=== PATIENT | female | born 1930 | race Caucasian/White ===

== ENCOUNTER 2016-10-27 15:29 | Emergency (ER) | payer MEDICARE, BC ==
[~2016-10-27] VITALS: Ht 160 cm; Wt 70.0 kg
[~2016-10-27 15:29] MED LIST: ASPI81TA81 PO; CIPR-9 PO; CORT1SOL LEFT EAR; FURO20TA PO; INSUINJ3 SQ; METO25TA3 PO; NOVONP2 SQ; PLAV75TA29 PO; SPIR25TA PO; ZOCO40TA PO
[2016-10-27 16:39] VITALS: BP 133/74; PULSE 86; RESP 20; TEMP 98.3; O2SAT 96
[2016-10-27] MEDS ORDERED: ONDANSETRON ODT 4 MG TAB PO ONE (17:00)
[2016-10-27] MEDS ORDERED: ACETAMINOPHEN/HYDROcodone 325 MG/5 MG TAB PO ONE (17:00)
--- NOTE | 2016-10-27 17:00 | PD ---
HPI Chief Complaint: Pain: Acute or Chronic Time Seen by Provider: 16:48 Travel History International Travel<30 days: No Contact w/Intl Traveler<30days: No Traveled to known affect area: No History of Present Illness HPI 86 year old female presents for evaluation of right shoulder pain. The patient reports a prior to arrival she was lifting a gallon of milk at [employer] and she felt a pain in her right shoulder. Pain is an aching pain which is worse with any sort of passive or active range of motion utilizing the right shoulder. The pain is relieved with rest. Denies chest pain, shortness of breath, arm pain, neck pain. She reports that she saw Dr. Albarado on October 17 and was told that she had a "right rotator cuff problem" and she declined any sort of surgical intervention. He did perform a intra-articular right shoulder steroid injection at that time which helped with her previous right shoulder discomfort. She has no other complaints. PFSH Past Medical History Hx Anticoagulant Therapy: Yes (PLAVIX) Arthritis: Yes Asthma: No Autoimmune Disease: No Blood Disorders: No Heart Rhythm Problems: No Cancer: Yes (LEFT BREAST CANCER) Cardiovascular Problems: Yes High Cholesterol: Yes Chemotherapy: No Chest Pain: Yes Congestive Heart Failure: Yes COPD: Yes Cerebrovascular Accident: No Diabetes: Yes Patient Takes Glucophage: No Diminished Hearing: No Endocrine: No Gastrointestinal Disorders: Yes GERD: No Genitourinary: No Headaches: No Hepatitis: No Hiatal Hernia: No Hypertension: Yes Immune Disorder: No Implanted Vascular Access Dvce: Yes Kidney Stones: No Musculoskeletal: Yes (ARTHRITIS) Neurologic: No Psychiatric: No Reproductive: No Respiratory: No Migraines: No Myocardial Infarction: Yes Radiation Therapy: Yes Renal Failure: No Seizures: No Sleep Apnea: No Thyroid Disease: No Ulcer: No Tetanus Vaccination: > 5 Years Influenza Vaccination: Yes Menopausal: Yes Past Surgical History Abdominal Surgery: Yes (CHARLETTE., ) AICD: No Appendectomy: No Arteriovenous Shunt: No Cardiac Surgery: Yes (STENT, CABG X 2 VESSELS) Cholecystectomy: Yes Coronary Artery Bypass Graft: Yes ([address]) Ear Surgery: No Endocrine Surgery: No Eye Surgery: Yes (BILAT. CATARACT) Genitourinary Surgery: Yes Gynecologic Surgery: Yes (HYSTERECTOMY) Hysterectomy: Yes Insulin Pump: No Joint Replacement: Yes (LEFT KNEE 2003) Neurologic Surgery: No Oral Surgery: No Pacemaker: No Other Surgery: Yes (LEFT BREAST LUMPECTOMY) Social History Alcohol Use: No Tobacco Use: No Substance Use: No Allergies-Medications (Allergen,Severity, Reaction): Coded Allergies: Demerol (Verified Allergy, Severe, N/V, 10/27/16) CONFUSION Morphine (Verified Allergy, Severe, Itching, 10/27/16) Scopolamine (Verified Allergy, Severe, HALLUCINATES, 10/27/16) Adenosine (Verified Adverse Reaction, Severe, Arrhythmias, 10/27/16) Codeine (Verified Adverse Reaction, Severe, Confusion, 10/27/16) Percocet (Unverified Adverse Reaction, Intermediate, CONFUSION, 10/27/16) Reported Meds & Prescriptions Reported Meds & Active Scripts Active Tylenol-Codeine #3 (Acetaminophen-Codeine) 300-30 mg Tab 1 Tab PO Q4H PRN Reported Novolin N Inj (Insulin Human NPH) 100 Unit/Ml Inj 45 Units SQ AC BREAKFAST Novolin R Relion (Insulin Regular (Human)) 100 Unit/Ml Inj 1 Units SQ DIRECTED Zocor (Simvastatin) 40 Mg Tab 40 Mg PO DAILY Furosemide 20 Mg Tab 20 Mg PO DAILY Metoprolol Tartrate 25 Mg Tab 25 Mg PO BID Spironolactone 25 Mg Tab 25 Mg PO DAILY Plavix (Clopidogrel Bisulfate) 75 Mg Tab 75 Mg PO DAILY Aspir-81 (Aspirin) 81 Mg Tabdr 1 Tab PO DAILY Review of Systems Except as stated in HPI: all other systems reviewed are Neg Physical Exam Narrative GENERAL: Well-developed well-nourished female in no acute distress SKIN: Warm and dry. HEAD: Atraumatic. Normocephalic. EYES: Pupils equal and round. No scleral icterus. No injection or drainage. ENT: No nasal bleeding or discharge. Mucous membranes pink and moist. NECK: Trachea midline. No JVD. CARDIOVASCULAR: Regular rate and rhythm. No murmur appreciated. RESPIRATORY: No accessory muscle use. Clear to auscultation. Breath sounds equal bilaterally. GASTROINTESTINAL: Abdomen soft, non-tender, nondistended. MUSCULOSKELETAL: No obvious deformities. There is some tenderness to palpation to the right glenohumeral joint. The patient has limited passive and active range of motion utilizing the right shoulder secondary to pain. Capillary refill less than 2 seconds all digits right hand, 2+ radial pulse. There is no tenderness to palpation of the right clavicle, scapula, no tenderness to palpation of the cervical spine. NEUROLOGICAL: Awake and alert. No obvious cranial nerve deficits. Motor grossly within normal limits. Normal speech. Data Data Last Documented VS Vital Signs Date Time Temp Pulse Resp B/P Pulse Ox O2 Delivery O2 Flow Rate FiO2 10/27/16 16:39 98.3 86 20 133/74 96 Room Air Orders Acetamin-Hydrocod 325-5 Mg ([place] 5-325 (10/27/16 17:00) Ondansetron Odt (Zofran Odt) (10/27/16 17:00) Shoulder, Limited(2vws) (10/27/16 ) [facility] Medical Decision Making Medical Screen Exam Complete: Yes Emergency Medical Condition: Yes Medical Record Reviewed: Yes Interpretation(s) Right shoulder x-ray CONCLUSION: Osteoarthritis and subacromial spurring. No fracture or subluxation demonstrated. Differential Diagnosis Right shoulder strain, rotator cuff tear, impingement, proximal humeral fracture , dislocation, acromioclavicular separation, radiculopathy Narrative Course 86-year-old female with known right rotator cuff pathology presents with increased right shoulder pain after lifting a gallon of milk at [employer]. The patient has listed allergies to codeine, Demerol, morphine and Percocet however she has taken Lortab in the past with no adverse effect. She'll be given a dose of Lortab and Zofran here for pain control. Limited right shoulder x-ray and ordered. X-ray reveals osteoarthritis, subacromial spurring, no acute abnormalities. At This point, plan is to discharge the patient with a sling and a short course of Tylenol with codeine. Diagnosis Primary Impression: Right shoulder strain Qualified Code: S46.911A - Right shoulder strain, initial encounter Additional Instructions: Avoid strenuous activity or heavy lifting. Shoulder sling for the next 2 days. Follow-up with your primary care physician closely. Take Tylenol with Codeine for discomfort. Do not drive or drink alcohol when taking this medication. Return for any emergent medical conditions. Med/Other Pt SpecificInfo: Prescription(s) given Scripts Acetaminophen-Codeine (Tylenol-Codeine #3)300-30 mg Tab1 Tab PO Q4H PRN (PAIN) # 20 TAB Ref 0 Prov:Aura Batista MD 10/27/16 Disposition: 01 DISCHARGE HOME Condition: Stable [place] Oct 27, 2016 17:00
--- NOTE | 2016-10-27 17:29 | RADRPT ---
EXAM DATE/TIME: 10/27/2016 17:17 [facility] COMPARISON: No previous studies available for comparison. INDICATIONS : Right anterior pain after reaching for something today. MEDICAL HISTORY : Cardiovascular disease. SURGICAL HISTORY : CABG. ENCOUNTER: Initial ACUITY: 1 day PAIN SCORE: 10/10 LOCATION: Right shoulder FINDINGS: No fracture or subluxation seen of the right shoulder. There is moderate to severe osteoarthritis of both the acromioclavicular and glenohumeral joints. The re is also subacromial spurring. CONCLUSION: Osteoarthritis and subacromial spurring. No fracture or subluxation demonstrated. Aureliano Nichole MD on October 27, 2016 at 17:26 Board Certified Radiologist. This report was verified electronically.
[2016-10-27] MEDS ORDERED: TYLETAB34 PO (17:45)
[2016-10-27 18:29] VITALS: BP 130/71
== END 2016-10-27 19:17 | disposition home or self-care (01) ==
LOC: NEPA 15:29
DX: S46.911A Strain of unspecified muscle, fascia and tendon at shoulder and upper arm level, right arm, initial encounter (principal); Z79.01 Long term (current) use of anticoagulants; E78.00 Pure hypercholesterolemia, unspecified; J44.9 Chronic obstructive pulmonary disease, unspecified; E11.9 Type 2 diabetes mellitus without complications; Z79.4 Long term (current) use of insulin; I10 Essential (primary) hypertension; X50.9XXA Other and unspecified overexertion or strenuous movements or postures, initial encounter; Y93.9 Activity, unspecified; Y92.9 Unspecified place or not applicable; Y99.9 Unspecified external cause status
CPT/HCPCS: 73030; 99283

== ENCOUNTER → 2016-12-30 | Outpatient (CLI) | payer MEDICARE, BC ==
[~2016-12-30] MED LIST changes: -CIPR-9 PO; -CORT1SOL LEFT EAR; +TYLETAB34 PO
[2016-12-30 10:35] LABS: HEMOGLOBIN A1a 1.4 %; HEMOGLOBIN A1b 1.1 %; HEMOGLOBIN Ao 82.8 %; HEMOGLOBIN LA1C 1.6 %; HEMOGLOBIN P3 3.8 %
[2016-12-30 10:45] LABS: ALT (GPT) 17 U/L (10-53); ANION GAP 9 MEQ/L (5-15); AST (GOT) 12 U/L (15-37); BICARBONATE 28.7 MEQ/L (21.0-32.0); BLOOD UREA NITROGEN 10 MG/DL (7-18); CHLORIDE 104 MEQ/L (98-107); GLOMERULAR FILTRATION RATE 68 ML/MIN (>89); GLUCOSE,FASTING 97 MG/DL (74-99); POTASSIUM 3.4 MEQ/L (3.5-5.1); SODIUM (NA) 142 MEQ/L (136-145)
[2016-12-30 10:47] LABS: ALKALINE PHOSPHATASE 68 U/L (45-117); HDL CHOLESTEROL 51.2 MG/DL (40.0-60.0); LDL CHOLESTEROL 73 MG/DL (0-99); TOTAL BILIRUBIN ADULT 0.3 MG/DL (0.2-1.0)
[2016-12-30 11:49] LABS: MICRO ALBUMIN RANDOM URINE RAW 67.9 MG/L (0.0-30.0)
== END ==
LOC: CLAB 09:56
PROVIDERS: ATTEND Family Medicine
DX: E78.2 Mixed hyperlipidemia (principal); E11.9 Type 2 diabetes mellitus without complications
CPT/HCPCS: 36415; 80053; 80061; 82043; 83036

== ENCOUNTER → 2017-05-13 | Outpatient (CLI) | payer MEDICARE, BC ==
[2017-05-13 10:30] LABS: ALT (GPT) 16 U/L (10-53); ANION GAP 6 MEQ/L (5-15); AST (GOT) 18 U/L (15-37); BICARBONATE 29.6 MEQ/L (21.0-32.0); BLOOD UREA NITROGEN 20 MG/DL (7-18); CHLORIDE 102 MEQ/L (98-107); GLOMERULAR FILTRATION RATE 65 ML/MIN (>89); GLUCOSE,FASTING 82 MG/DL (74-99); POTASSIUM 3.7 MEQ/L (3.5-5.1); SODIUM (NA) 138 MEQ/L (136-145)
[2017-05-13 10:32] LABS: ALKALINE PHOSPHATASE 66 U/L (45-117); HDL CHOLESTEROL 55.6 MG/DL (40.0-60.0); LDL CHOLESTEROL 54 MG/DL (0-99); TOTAL BILIRUBIN ADULT 0.4 MG/DL (0.2-1.0)
[2017-05-13 15:54] LABS: HEMOGLOBIN A1a 1.1 %; HEMOGLOBIN Ao 83.7 %; HEMOGLOBIN LA1C 1.7 %; HEMOGLOBIN P3 4.1 %
== END ==
LOC: CLAB 09:51
PROVIDERS: ATTEND Family Medicine
DX: E78.2 Mixed hyperlipidemia (principal); E11.9 Type 2 diabetes mellitus without complications
CPT/HCPCS: 36415; 80053; 80061; 83036

== ENCOUNTER → 2017-09-08 | Outpatient (CLI) | payer MEDICARE, BC ==
[2017-09-08 16:12] LABS: ANION GAP 11 MEQ/L (5-15); AST (GOT) 16 U/L (15-37); BICARBONATE 23.1 MEQ/L (21.0-32.0); BLOOD UREA NITROGEN 17 MG/DL (7-18); CHLORIDE 104 MEQ/L (98-107); GLOMERULAR FILTRATION RATE 74 ML/MIN (>89); GLUCOSE,FASTING 104 MG/DL (74-99); POTASSIUM 3.9 MEQ/L (3.5-5.1); SODIUM (NA) 138 MEQ/L (136-145)
[2017-09-08 16:13] LABS: ALT (GPT) 19 U/L (10-53)
[2017-09-08 16:16] LABS: ALKALINE PHOSPHATASE 74 U/L (45-117); HDL CHOLESTEROL 47.7 MG/DL (40.0-60.0); LDL CHOLESTEROL 47 MG/DL (0-99); TOTAL BILIRUBIN ADULT 0.3 MG/DL (0.2-1.0)
[2017-09-08 16:36] LABS: HEMOGLOBIN A1a 1.2 %; HEMOGLOBIN A1b 1.1 %; HEMOGLOBIN F 1.2 %; HEMOGLOBIN P3 4.3 %
== END ==
LOC: CLAB 09:16
PROVIDERS: ATTEND Family Medicine
DX: E11.9 Type 2 diabetes mellitus without complications (principal)
CPT/HCPCS: 36415; 80053; 80061; 83036

== ENCOUNTER 2017-12-11 10:26 | Emergency (ER) | payer MEDICARE, BC ==
[2017-12-11 10:35] VITALS: BP 122/70; PULSE 74; RESP 18; TEMP 98.4; O2SAT 98
[2017-12-11 10:42] VITALS: O2SAT 96
[2017-12-11] MEDS ORDERED: SODIUM CHLORIDE 0.9% FLUSH 10 ML FLUSH IVF PRN (10:45)
--- NOTE | 2017-12-11 10:58 | RADRPT ---
EXAM DATE/TIME: 12/11/2017 10:43 [facility] COMPARISON: No previous studies available for comparison. INDICATIONS : Palpitations, weakness this morning MEDICAL HISTORY : Cardiovascular disease. SURGICAL HISTORY : CABG. Coronary artery stent. ENCOUNTER: Initial ACUITY: 1 day PAIN SCORE: Non-responsive. LOCATION: Bilateral chest FINDINGS: A single view of the chest demonstrates the lungs to be symmetrically aerated without evidence of mas s, infiltrate or effusion. The cardiomediastinal contours are unremarkable. Osseous structures are intact. Sternotomy wires noted CONCLUSION: No acute disease. Aureliano Calloway MD on December 11, 2017 at 10:56 Board Certified Radiologist. This report was verified electronically.
--- NOTE | 2017-12-11 11:00 | RADRPT ---
EXAM DATE/TIME: 12/11/2017 10:52 [facility] COMPARISON: No previous studies available for comparison. INDICATIONS : Dizziness, weakness RADIATION DOSE: 35.46 CTDIvol (mGy) MEDICAL HISTORY : Cardiovascular disease. Chronic obstructive pulmonary disease. Hypertension.Diabetes, Left breast can cer SURGICAL HISTORY : Hysterectomy. Left lumpectomy ENCOUNTER: Initial ACUITY: 4 - 6 days PAIN SCALE: 3/10 LOCATION: Bilateral cranial TECHNIQUE: Multiple contiguous axial images were obtained of the head. Using automated exposure control and adj ustment of the mA and/or kV according to patient size, radiation dose was kept as low as reasonably a chievable to obtain optimal diagnostic quality images. DICOM format image data is available electro nically for review and comparison. FINDINGS: There are small bilateral basal ganglia lacunar infarcts which appear old. There is moderate diminish ed density in the periventricular white matter which appears benign. There is no evidence of intracra nial hemorrhage or mass. There is nothing to suggest acute infarction. There is mucosal sinus disease in the visualized ethmoid sinuses and maxillary antra. CONCLUSION: No acute intracranial findings. Sinus disease Aureliano Calloway MD on December 11, 2017 at 10:57 Board Certified Radiologist. This report was verified electronically.
[2017-12-11 11:21] LABS: AUTOMATED NEUTROPHIL # 8.5 TH/MM3 (1.8-7.7); BASOPHIL % 0.4 % (0.0-2.0); EOSINOPHIL # 0.1 TH/MM3 (0-0.4); EOSINOPHIL % 0.7 % (0.0-4.0); HEMATOCRIT 38.3 % (35.0-46.0); HEMOGLOBIN 13.2 GM/DL (11.6-15.3); LYMPH % 15.7 % (9.0-44.0); LYMPHOCYTE # 1.7 TH/MM3 (1.0-4.8); MEAN CELL VOLUME 93.2 FL (80.0-100.0); MEAN CORPUSCULAR HEMOGLOBIN 32.1 PG (27.0-34.0); MEAN CORPUSCULAR HGB CONC 34.5 % (32.0-36.0); MEAN PLATELET VOLUME 7.6 FL (7.0-11.0); MONO % 5.6 % (0.0-8.0); MONOCYTE # 0.6 TH/MM3 (0-0.9); NEUT % 77.6 % (16.0-70.0); PLATELET COUNT 349 TH/MM3 (150-450); RED BLOOD COUNT 4.11 MIL/MM3 (4.00-5.30); RED CELL DISTRIBUTION WIDTH 13.8 % (11.6-17.2)
[2017-12-11 11:32] LABS: INTERNATIONAL NORMALIZED RATIO 1.1 RATIO; PROTHROMBIN TIME - PATIENT 10.9 SEC (9.8-11.6)
[2017-12-11 11:49] LABS: ALBUMIN 3.6 GM/DL (3.4-5.0); ALKALINE PHOSPHATASE 70 U/L (45-117); ALT (GPT) 22 U/L (10-53); BICARBONATE 27.3 MEQ/L (21.0-32.0); BLOOD UREA NITROGEN 15 MG/DL (7-18); CHLORIDE 104 MEQ/L (98-107); CREATININE 0.72 MG/DL (0.50-1.00); GLOMERULAR FILTRATION RATE 77 ML/MIN (>89); GLUCOSE,RANDOM 98 MG/DL (74-106); MAGNESIUM 1.9 MG/DL (1.5-2.5); SODIUM (NA) 139 MEQ/L (136-145); TOTAL BILIRUBIN ADULT 0.5 MG/DL (0.2-1.0); TOTAL PROTEIN 8.1 GM/DL (6.4-8.2); TROPONIN I LESS THAN 0.02 NG/ML (0.02-0.05)
[2017-12-11 11:50] LABS: AST (GOT) 43 U/L (15-37)
--- NOTE | 2017-12-11 11:58 | PD ---
HPI Chief Complaint: General Weakness Time Seen by Provider: 10:39 Travel History International Travel<30 days: No Contact w/Intl Traveler<30days: No Traveled to known affect area: No History of Present Illness HPI 87-year-old female arrives by EMS. She had difficulty sitting herself upright from bed and grabbing her walker this morning and called EMS for that reason. She reports increased fatigue and weakness over the past 3 weeks or so. Weakness type symptoms have come and gone. She reports sleeping very well lately taking melatonin 20 mg in two10 mg divided doses about a half an hour prior to bed. No chest pain shortness of breath fever chills nausea or vomiting. No changes in bowel bladder habits. She denies syncope near syncope dizziness lightheadedness or palpitations at any point. PFSH Past Medical History Hx Anticoagulant Therapy: Yes (PLAVIX) Arthritis: Yes Asthma: No Autoimmune Disease: No Blood Disorders: No Heart Rhythm Problems: No Cancer: Yes (LEFT BREAST CANCER) Cardiovascular Problems: Yes High Cholesterol: Yes Chemotherapy: No Chest Pain: Yes Congestive Heart Failure: Yes COPD: Yes Cerebrovascular Accident: No Diabetes: Yes Patient Takes Glucophage: No Diminished Hearing: Yes (CHITIMACHA) Endocrine: No Gastrointestinal Disorders: Yes GERD: No Genitourinary: No Headaches: No Hepatitis: No Hiatal Hernia: No Hypertension: Yes Immune Disorder: No Implanted Vascular Access Dvce: Yes Kidney Stones: No Musculoskeletal: Yes (ARTHRITIS) Neurologic: No Psychiatric: No Reproductive: No Respiratory: No Migraines: No Myocardial Infarction: Yes Radiation Therapy: Yes Renal Failure: No Seizures: No Sleep Apnea: No Thyroid Disease: No Ulcer: No Menopausal: Yes Past Surgical History Abdominal Surgery: Yes (CHARLETTE., ) AICD: No Appendectomy: No Arteriovenous Shunt: No Cardiac Surgery: Yes (STENT, CABG X 2 VESSELS) Cholecystectomy: Yes Coronary Artery Bypass Graft: Yes ([address]) Ear Surgery: No Endocrine Surgery: No Eye Surgery: Yes (BILAT. CATARACT) Genitourinary Surgery: Yes Gynecologic Surgery: Yes (HYSTERECTOMY) Hysterectomy: Yes Insulin Pump: No Joint Replacement: Yes (LEFT KNEE 2003) Neurologic Surgery: No Oral Surgery: No Pacemaker: No Other Surgery: Yes (LEFT BREAST LUMPECTOMY) Social History Alcohol Use: No Tobacco Use: No Substance Use: No Allergies-Medications (Allergen,Severity, Reaction): Coded Allergies: meperidine (Unverified Allergy, Severe, N/V, 12/11/17) CONFUSION morphine (Unverified Allergy, Severe, Itching, 12/11/17) scopolamine (Unverified Allergy, Severe, HALLUCINATES, 12/11/17) adenosine (Unverified Adverse Reaction, Severe, Arrhythmias, 12/11/17) codeine (Unverified Adverse Reaction, Severe, Confusion, 12/11/17) acetaminophen (Unverified Adverse Reaction, Intermediate, CONFUSION, ) oxycodone (Unverified Adverse Reaction, Intermediate, CONFUSION, 12/11/17) Reported Meds & Prescriptions Reported Meds & Active Scripts Active Macrobid (Nitrofurantoin Monoh/Nitrofur Macro) 100 Mg Cap 100 Mg PO BID 5 Days Reported Novolin N Inj (Insulin Human NPH) 100 Unit/Ml Inj 45 Units SQ AC BREAKFAST Novolin R Relion (Insulin Regular (Human)) 100 Unit/Ml Inj 1 Units SQ DIRECTED Zocor (Simvastatin) 40 Mg Tab 40 Mg PO DAILY Furosemide 20 Mg Tab 20 Mg PO DAILY Spironolactone 25 Mg Tab 25 Mg PO DAILY Aspir-81 (Aspirin) 81 Mg Tabdr 1 Tab PO DAILY Review of Systems Except as stated in HPI: all other systems reviewed are Neg General / Constitutional: No: Fever Physical Exam Narrative GENERAL: Pleasant 87-year-old female no acute distress speaking full sentences Vital Signs Date Time Temp Pulse Resp B/P (MAP) Pulse Ox O2 Delivery O2 Flow Rate FiO2 12/11/17 10:42 96 Room Air 12/11/17 10:38 18 Room Air 12/11/17 10:35 98.4 74 18 122/70 (87) 98 SKIN: Warm and dry. HEAD: Atraumatic. Normocephalic. EYES: Pupils equal and round. No scleral icterus. No injection or drainage. ENT: No nasal bleeding or discharge. Mucous membranes pink and moist. NECK: Trachea midline. No JVD. CARDIOVASCULAR: Regular rate and rhythm. RESPIRATORY: No accessory muscle use. Clear to auscultation. Breath sounds equal bilaterally. GASTROINTESTINAL: Abdomen soft, non-tender, nondistended. Hepatic and splenic margins not palpable. MUSCULOSKELETAL: Extremities without clubbing, cyanosis, or edema. No obvious deformities. NEUROLOGICAL: Awake and alert. No obvious cranial nerve deficits. Motor grossly within normal limits. Five out of 5 muscle strength in the arms and legs. Normal speech. PSYCHIATRIC: Appropriate mood and affect; insight and judgment normal. Data Data Last Documented VS Vital Signs Date Time Temp Pulse Resp B/P (MAP) Pulse Ox O2 Delivery O2 Flow Rate FiO2 12/11/17 13:17 76 17 118/70 (86) 99 12/11/17 10:42 Room Air 12/11/17 10:35 98.4 Orders Orders Electrocardiogram (12/11/17 10:39) Complete Blood Count With Diff (12/11/17 10:39) Comprehensive Metabolic Panel (12/11/17 10:39) Magnesium (Mg) (12/11/17 10:39) B-Type Natriuretic Peptide (12/11/17 10:39) Ckmb (Isoenzyme) Profile (12/11/17 10:39) Troponin I (12/11/17 10:39) Act Partial Throm Time (Ptt) (12/11/17 10:39) Prothrombin Time / Inr (Pt) (12/11/17 10:39) Urinalysis - C+S If Indicated (12/11/17 10:39) Chest, Single Ap (12/11/17 10:39) Ct Brain W/O Iv Contrast(Rout) (12/11/17 10:39) Ecg Monitoring (12/11/17 10:39) Iv Access Insert/Monitor (12/11/17 10:39) Oximetry (12/11/17 10:39) Sodium Chloride 0.9% Flush (Ns Flush) (12/11/17 10:45) CKMB (12/11/17 11:07) CKMB% (12/11/17 11:07) Urine Culture (12/11/17 11:26) Sulfamet-Trimeth Ds 800-160 Mg (Bactrim (12/11/17 12:30) Ed Discharge Order (12/11/17 12:24) Nitrofurantoin Monohyd Macrocr (Macrobid (12/11/17 12:45) Labs Laboratory Tests Test 12/11/17 11:07 12/11/17 11:26 White Blood Count 11.0 TH/MM3 Red Blood Count 4.11 MIL/MM3 Hemoglobin 13.2 GM/DL Hematocrit 38.3 % Mean Corpuscular Volume 93.2 FL Mean Corpuscular Hemoglobin 32.1 PG Mean Corpuscular Hemoglobin Concent 34.5 % Red Cell Distribution Width 13.8 % Platelet Count 349 TH/MM3 Mean Platelet Volume 7.6 FL Neutrophils (%) (Auto) 77.6 % Lymphocytes (%) (Auto) 15.7 % Monocytes (%) (Auto) 5.6 % Eosinophils (%) (Auto) 0.7 % Basophils (%) (Auto) 0.4 % Neutrophils # (Auto) 8.5 TH/MM3 Lymphocytes # (Auto) 1.7 TH/MM3 Monocytes # (Auto) 0.6 TH/MM3 Eosinophils # (Auto) 0.1 TH/MM3 Basophils # (Auto) 0.0 TH/MM3 CBC Comment DIFF FINAL Differential Comment Prothrombin Time 10.9 SEC Prothromb Time International Ratio 1.1 RATIO Activated Partial Thromboplast Time 25.9 SEC Blood Urea Nitrogen 15 MG/DL Creatinine 0.72 MG/DL Random Glucose 98 MG/DL Total Protein 8.1 GM/DL Albumin 3.6 GM/DL Calcium Level 9.0 MG/DL Magnesium Level 1.9 MG/DL Alkaline Phosphatase 70 U/L Aspartate Amino Transf (AST/SGOT) 43 U/L Alanine Aminotransferase (ALT/SGPT) 22 U/L Total Bilirubin 0.5 MG/DL Sodium Level 139 MEQ/L Potassium Level 4.6 MEQ/L Chloride Level 104 MEQ/L Carbon Dioxide Level 27.3 MEQ/L Anion Gap 8 MEQ/L Estimat Glomerular Filtration Rate 77 ML/MIN Total Creatine Kinase 343 U/L Creatine Kinase MB 3.1 NG/ML Creatine Kinase MB % 0.9 % Troponin I LESS THAN 0.02 NG/ML B-Type Natriuretic Peptide 39 PG/ML Urine Color YELLOW Urine Turbidity HAZY Urine pH 6.0 Urine Specific [place] 1.017 Urine Protein NEG mg/dL Urine Glucose (UA) NEG mg/dL Urine Ketones NEG mg/dL Urine Occult Blood NEG Urine Nitrite NEG Urine Bilirubin NEG Urine Urobilinogen 2.0 MG/DL Urine Leukocyte Esterase LARGE Urine RBC 1 /hpf Urine WBC 13 /hpf Urine Squamous Epithelial Cells <1 /hpf Urine Bacteria MANY /hpf Urine Hyaline Casts 1 /lpf Microscopic Urinalysis Comment CULTURE INDICATED MDM Medical Decision Making Medical Screen Exam Complete: Yes Emergency Medical Condition: Yes Differential Diagnosis UTI, metabolic disarray, anemia, arrhythmia Narrative Course CBC & BMP Diagram 12/11/17 11:07 Total Protein 8.1, Albumin 3.6, Calcium Level 9.0, Magnesium Level 1.9, Alkaline Phosphatase 70, Aspartate Amino Transf (AST/SGOT) 43 H, Alanine Aminotransferase (ALT/SGPT) 22, Total Bilirubin 0.5 EKG shows no ischemic injury pattern or arrhythmia The patient has a UTI and is likely suffering symptoms related to that. She also taking a fair amount of melatonin decreasing the dosage was discussed and she is somewhat amenable to at least a 25% reduction. Diagnosis Primary Impression: Weakness Additional Impression: UTI (urinary tract infection) Qualified Codes: N39.0 - Urinary tract infection, site not specified Referrals: Primary Care Physician 2 days Med/Other Pt SpecificInfo: Prescription(s) given Scripts Nitrofurantoin Monohydrate Macrocrystals (Macrobid) 100 Mg Cap 100 MG PO BID for Infection for 5 Days, #10 CAP 0 Refills Prov: Francis Baires MD 12/11/17 Disposition: 01 DISCHARGE HOME Condition: Stable Francis Baires MD Dec 11, 2017 11:58
[2017-12-11 12:04] LABS: BACTERIA, URINE MANY /hpf; BILIRUBIN, URINE NEG (NEG); BLOOD, URINE NEG (NEG); GLUCOSE,URINE NEG (NEG); HYALINE CAST, URINE 1 /lpf (RARE); KETONE, URINE NEG (NEG); NITRITE,URINE NEG (NEG); SQUAMOUS EPITHELIAL CELL URINE <1 /hpf (0-5); URINE COLOR YELLOW (YELLW/STRAW); URINE LEUKOCYTE ESTERASE LARGE (NEG)
[2017-12-11] MEDS ORDERED: BACT800T5 PO (12:20)
[2017-12-11] MEDS ORDERED: SULFAMETHOXAZOLE-TRIMETHOPRIM DS 800-160 MG TAB PO ONE (12:30)
[2017-12-11] MEDS ORDERED: MACR100C2 PO (12:38)
[2017-12-11] MEDS ORDERED: NITROFURANTOIN MONOHYD MACROCR 100 MG CAP PO ONE (12:45)
[2017-12-11 13:17] VITALS: BP 118/70
--- NOTE | 2017-12-11 14:42 | EKG ---
Date Performed: 12/11/2017 Time Performed: 10:43:28 PTAGE: 87 years EKG: Sinus rhythm WITH OCCASIONAL VENTRICULAR PREMATURE COMPLEXES POSSIBLE ANTERIOR MYOCARDIAL INFARCTION POSSIBLE INF ERIOR INFARCT, AGE UNDETERMINED ABNORMAL ECG Since PREVIOUS TRACING , no significant change noted PREVIOUS TRACIN03/20/2010 18.15 DOCTOR: Layton Roberto Interpretating Date/Time 12/11/2017 14:36:12
== END 2017-12-11 13:18 | disposition home or self-care (01) ==
LOC: NEPE 10:26
DX: R53.1 Weakness (principal); N39.0 Urinary tract infection, site not specified; B96.20 Unspecified Escherichia coli [E. coli] as the cause of diseases classified elsewhere; I11.0 Hypertensive heart disease with heart failure; I50.9 Heart failure, unspecified; I25.10 Atherosclerotic heart disease of native coronary artery without angina pectoris; I25.2 Old myocardial infarction; J44.9 Chronic obstructive pulmonary disease, unspecified; E78.00 Pure hypercholesterolemia, unspecified; E11.9 Type 2 diabetes mellitus without complications; M19.90 Unspecified osteoarthritis, unspecified site; R94.31 Abnormal electrocardiogram [ECG] [EKG]; Z85.3 Personal history of malignant neoplasm of breast; Z95.1 Presence of aortocoronary bypass graft; Z95.5 Presence of coronary angioplasty implant and graft; Z88.5 Allergy status to narcotic agent; Z88.8 Allergy status to other drugs, medicaments and biological substances; Z79.4 Long term (current) use of insulin; Z79.82 Long term (current) use of aspirin; Z79.899 Other long term (current) drug therapy
CPT/HCPCS: 70450; 71045; 80053; 81001; 82550; 82552; 83735; 83880; 84484; 85025; 85610; 85730; 87077; 87086; 87186; 93005; 99285

== ENCOUNTER 2017-12-12 11:02 | Emergency (ER) | payer MEDICARE, BC ==
[~2017-12-12] VITALS: Ht 162.6 cm; Wt 81.0 kg
[~2017-12-12 11:02] MED LIST changes: +MACR100C2 PO; -METO25TA3 PO; -PLAV75TA29 PO; -TYLETAB34 PO
[2017-12-12 11:14] VITALS: BP 113/66; PULSE 98; RESP 15; TEMP 97.9; O2SAT 99
[2017-12-12 11:26] VITALS: RESP 16; O2SAT 98
[2017-12-12] MEDS ORDERED: SODIUM CHLORID 0.9% 500 ML INJ 500 ML IV ONE ×2 (11:30→13:45)
[2017-12-12] MEDS: SODIUM CHLORIDE 0.9% FLUSH 10 ML FLUSH IV FLUSH PRN ×2 (11:31→13:56)
--- NOTE | 2017-12-12 11:53 | PD ---
HPI Chief Complaint: General Weakness Time Seen by Provider: 11:08 Travel History International Travel<30 days: No Contact w/Intl Traveler<30days: No Traveled to known affect area: No History of Present Illness HPI The patient is a 87-year-old female who presents to the emergency department for generalized weakness of one week's duration. The patient states she was seen in the emergency department yesterday, diagnosed with UTI, discharged home on Macrobid. She was also advised to decrease the amount of melatonin she was taking a help her sleep. She notes continuing or progressing weakness, notes difficulty getting out of bed and getting to the walker secondary to her weakness. The patient does live alone. She denies any chest pain, shortness of breath, nausea, vomiting, or abdominal pain. She does complain of generalized weakness. The patient's primary physician is Dr. Alon Houston. Symptoms are moderate. She denies any current dysuria. She did take her Macrobid. PFSH Past Medical History Hx Anticoagulant Therapy: Yes Arthritis: Yes Asthma: No Autoimmune Disease: No Blood Disorders: No Heart Rhythm Problems: No Cancer: Yes (LEFT BREAST CANCER) Cardiovascular Problems: Yes High Cholesterol: Yes Chemotherapy: No Chest Pain: Yes Congestive Heart Failure: Yes COPD: Yes Cerebrovascular Accident: No Diabetes: Yes Patient Takes Glucophage: No Diminished Hearing: Yes ([place]) Endocrine: No Gastrointestinal Disorders: Yes GERD: No Genitourinary: No Headaches: No Hepatitis: No Hiatal Hernia: No Hypertension: Yes Immune Disorder: No Implanted Vascular Access Dvce: Yes Kidney Stones: No Musculoskeletal: Yes (ARTHRITIS) Neurologic: No Psychiatric: No Reproductive: No Respiratory: No Migraines: No Myocardial Infarction: Yes Radiation Therapy: Yes Renal Failure: No Seizures: No Sleep Apnea: No Thyroid Disease: No Ulcer: No Tetanus Vaccination: > 5 Years Influenza Vaccination: Yes ?: Not Menopausal: Yes : 3 Para: 3 Past Surgical History Abdominal Surgery: Yes ([place]., ) AICD: No Appendectomy: No Arteriovenous Shunt: No Cardiac Surgery: Yes (STENT, CABG X 2 VESSELS) Cholecystectomy: Yes Coronary Artery Bypass Graft: Yes ([address]) Ear Surgery: No Endocrine Surgery: No Eye Surgery: Yes (BILAT. CATARACT) Genitourinary Surgery: Yes Gynecologic Surgery: Yes (HYSTERECTOMY) Hysterectomy: Yes Insulin Pump: No Joint Replacement: Yes (LEFT KNEE 2003) Neurologic Surgery: No Oral Surgery: No Pacemaker: No Other Surgery: Yes (LEFT BREAST LUMPECTOMY) Social History Alcohol Use: No Tobacco Use: No Substance Use: No Allergies-Medications (Allergen,Severity, Reaction): Coded Allergies: morphine (Verified Allergy, Severe, Itching, 12/12/17) scopolamine (Verified Allergy, Severe, HALLUCINATES, 12/12/17) adenosine (Verified Adverse Reaction, Severe, Arrhythmias, 12/12/17) codeine (Verified Adverse Reaction, Severe, Confusion, 12/12/17) meperidine (Verified Adverse Reaction, Severe, N/V, 12/12/17) CONFUSION acetaminophen (Verified Adverse Reaction, Intermediate, CONFUSION, 12/12/17 ) oxycodone (Verified Adverse Reaction, Intermediate, CONFUSION, 12/12/17) Reported Meds & Prescriptions Reported Meds & Active Scripts Active Macrobid (Nitrofurantoin Monoh/Nitrofur Macro) 100 Mg Cap 100 Mg PO BID 5 Days Reported Novolin N Inj (Insulin Human NPH) 100 Unit/Ml Inj 45 Units SQ AC BREAKFAST Novolin R Relion (Insulin Regular (Human)) 100 Unit/Ml Inj 1 Units SQ DIRECTED Zocor (Simvastatin) 40 Mg Tab 40 Mg PO DAILY Furosemide 20 Mg Tab 20 Mg PO DAILY Spironolactone 25 Mg Tab 25 Mg PO DAILY Aspir-81 (Aspirin) 81 Mg Tabdr 1 Tab PO DAILY Review of Systems Except as stated in HPI: all other systems reviewed are Neg General / Constitutional: No: Fever Cardiovascular: No: Chest Pain or Discomfort Respiratory: No: Shortness of Breath Gastrointestinal: No: Nausea, Vomiting, Abdominal Pain Genitourinary: No: Dysuria Musculoskeletal: Positive: Weakness Neurologic: Positive: Weakness Physical Exam Narrative GENERAL: Awake, alert, pleasant 87 year-old female who appears her stated age and is in no acute respiratory distress. SKIN: Focused skin assessment warm/dry. HEAD: Atraumatic. Normocephalic. EYES: Pupils equal and round. No scleral icterus. No injection or drainage. ENT: No nasal bleeding or discharge. Dry mucous membranes. NECK: Trachea midline. No JVD. CARDIOVASCULAR: Regular, tachycardic with a heart rate of 101. Well-healed midline surgical scar. RESPIRATORY: No accessory muscle use. Clear to auscultation. Breath sounds equal bilaterally. GASTROINTESTINAL: Abdomen soft, non-tender, nondistended. No rebound tenderness. MUSCULOSKELETAL: No obvious deformities. No clubbing. No cyanosis. No edema. Well-healed scar medial aspect left lower extremity. NEUROLOGICAL: Awake and alert. No obvious cranial nerve deficits. Motor grossly within normal limits. Normal speech. Nonfocal. Oriented 4. PSYCHIATRIC: Appropriate mood and affect; insight and judgment normal. Data Data Last Documented VS Vital Signs Date Time Temp Pulse Resp B/P (MAP) Pulse Ox O2 Delivery O2 Flow Rate FiO2 12/12/17 12:31 97.8 92 16 120/76 (91) 99 Room Air Orders Orders Complete Blood Count With Diff (12/12/17 11:23) Comprehensive Metabolic Panel (12/12/17 11:23) Creatine Kinase (Cpk) (12/12/17 11:23) Thyroid Stimulating Hormone (12/12/17 11:23) Blood Glucose (12/12/17 11:23) Ecg Monitoring (12/12/17 11:23) Iv Access Insert/Monitor (12/12/17 11:23) Oximetry (12/12/17 11:23) Sodium Chloride 0.9% Flush (Ns Flush) (12/12/17 11:30) Sodium Chlorid 0.9% 500 Ml Inj (Ns 500 M (12/12/17 11:30) Lactic Acid (12/12/17 11:23) CKMB (12/12/17 11:30) CKMB% (12/12/17 11:30) Ceftriaxone Inj (Rocephin Inj) (12/12/17 13:30) Sodium Chlorid 0.9% 500 Ml Inj (Ns 500 M (12/12/17 13:45) Ed Discharge Order (12/12/17 14:02) Consult Pt Eval & Treat (12/12/17 14:24) Labs Laboratory Tests Test 12/12/17 11:30 White Blood Count 12.8 TH/MM3 Red Blood Count 4.04 MIL/MM3 Hemoglobin 13.5 GM/DL Hematocrit 37.6 % Mean Corpuscular Volume 93.0 FL Mean Corpuscular Hemoglobin 33.5 PG Mean Corpuscular Hemoglobin Concent 36.0 % Red Cell Distribution Width 13.9 % Platelet Count 334 TH/MM3 Mean Platelet Volume 7.9 FL Neutrophils (%) (Auto) 76.1 % Lymphocytes (%) (Auto) 16.9 % Monocytes (%) (Auto) 6.0 % Eosinophils (%) (Auto) 0.7 % Basophils (%) (Auto) 0.3 % Neutrophils # (Auto) 9.7 TH/MM3 Lymphocytes # (Auto) 2.2 TH/MM3 Monocytes # (Auto) 0.8 TH/MM3 Eosinophils # (Auto) 0.1 TH/MM3 Basophils # (Auto) 0.0 TH/MM3 CBC Comment AUTO DIFF Differential Comment AUTO DIFF CONFIRMED Blood Urea Nitrogen 15 MG/DL Creatinine 0.72 MG/DL Random Glucose 89 MG/DL Total Protein 8.3 GM/DL Albumin 3.8 GM/DL Calcium Level 9.5 MG/DL Alkaline Phosphatase 73 U/L Aspartate Amino Transf (AST/SGOT) 33 U/L Alanine Aminotransferase (ALT/SGPT) 24 U/L Total Bilirubin 0.5 MG/DL Sodium Level 138 MEQ/L Potassium Level 3.3 MEQ/L Chloride Level 102 MEQ/L Carbon Dioxide Level 25.7 MEQ/L Anion Gap 10 MEQ/L Estimat Glomerular Filtration Rate 77 ML/MIN Lactic Acid Level 1.8 mmol/L Total Creatine Kinase 369 U/L Creatine Kinase MB 3.4 NG/ML Creatine Kinase MB % 0.9 % Thyroid Stimulating Hormone 3rd Gen 1.240 uIU/ML MDM Medical Decision Making Medical Screen Exam Complete: Yes Emergency Medical Condition: Yes Medical Record Reviewed: Yes Interpretation(s) Laboratory Tests Test 12/12/17 11:30 White Blood Count 12.8 TH/MM3 Red Blood Count 4.04 MIL/MM3 Hemoglobin 13.5 GM/DL Hematocrit 37.6 % Mean Corpuscular Volume 93.0 FL Mean Corpuscular Hemoglobin 33.5 PG Mean Corpuscular Hemoglobin Concent 36.0 % Red Cell Distribution Width 13.9 % Platelet Count 334 TH/MM3 Mean Platelet Volume 7.9 FL Neutrophils (%) (Auto) 76.1 % Lymphocytes (%) (Auto) 16.9 % Monocytes (%) (Auto) 6.0 % Eosinophils (%) (Auto) 0.7 % Basophils (%) (Auto) 0.3 % Neutrophils # (Auto) 9.7 TH/MM3 Lymphocytes # (Auto) 2.2 TH/MM3 Monocytes # (Auto) 0.8 TH/MM3 Eosinophils # (Auto) 0.1 TH/MM3 Basophils # (Auto) 0.0 TH/MM3 CBC Comment AUTO DIFF Differential Comment AUTO DIFF CONFIRMED Blood Urea Nitrogen 15 MG/DL Creatinine 0.72 MG/DL Random Glucose 89 MG/DL Total Protein 8.3 GM/DL Albumin 3.8 GM/DL Calcium Level 9.5 MG/DL Alkaline Phosphatase 73 U/L Aspartate Amino Transf (AST/SGOT) 33 U/L Alanine Aminotransferase (ALT/SGPT) 24 U/L Total Bilirubin 0.5 MG/DL Sodium Level 138 MEQ/L Potassium Level 3.3 MEQ/L Chloride Level 102 MEQ/L Carbon Dioxide Level 25.7 MEQ/L Anion Gap 10 MEQ/L Estimat Glomerular Filtration Rate 77 ML/MIN Lactic Acid Level 1.8 mmol/L Total Creatine Kinase 369 U/L Creatine Kinase MB 3.4 NG/ML Creatine Kinase MB % 0.9 % Thyroid Stimulating Hormone 3rd Gen 1.240 uIU/ML Differential Diagnosis Differential diagnosis includes stability, inability to ambulate, UTI, hyponatremia, dehydration, malaise, subdural hemorrhage, pneumonia. Narrative Course I reviewed the patient's EMR course from yesterday, she had a CT of the brain that was negative, chest x-ray that was unremarkable, and essentially normal labs except for UA with 13 wbc's. Culture is currently pending. Repeat sodium was sent to lab, lactic acid was sent to lab, the patient was administered IV fluids. I had a discussion with the patient regarding case management evaluation for possible custodial facility placement and/or home health care nursing. The patient does not want to go to a custodial facility and does not want home health care nursing. White count is minimally elevated 12.8. Lactic acid is normal. I discussed the patient with Dr. Houston who recommends Rocephin 1 g intravenously, she has an appointment on Friday. She will be discharged home, is advised to continue antibiotics as previously directed. I discussed with case management regarding home health, a stat PT about was ordered, case management evaluated the patient. A [id number] was performed. Diagnosis Primary Impression: UTI (urinary tract infection) Qualified Codes: N30.00 - Acute cystitis without hematuria Patient Instructions: General Instructions Additional Instructions: Please provide a patient a copy of her labs at discharge. Follow-up with Dr. Houston as scheduled. Plenty fluids to stay hydrated. Continue antibiotics as previously prescribed. Disposition: DISCHARGE HOME Condition: Stable Lozano,Ludwin Z. MD Dec 12, 2017 11:53
[2017-12-12 12:05] LABS: AUTOMATED NEUTROPHIL # 9.7 TH/MM3 (1.8-7.7); BASOPHIL % 0.3 % (0.0-2.0); EOSINOPHIL # 0.1 TH/MM3 (0-0.4); EOSINOPHIL % 0.7 % (0.0-4.0); HEMATOCRIT 37.6 % (35.0-46.0); HEMOGLOBIN 13.5 GM/DL (11.6-15.3); LYMPH % 16.9 % (9.0-44.0); LYMPHOCYTE # 2.2 TH/MM3 (1.0-4.8); MEAN CORPUSCULAR HEMOGLOBIN 33.5 PG (27.0-34.0); MEAN PLATELET VOLUME 7.9 FL (7.0-11.0); MONOCYTE # 0.8 TH/MM3 (0-0.9); NEUT % 76.1 % (16.0-70.0); PLATELET COUNT 334 TH/MM3 (150-450); RED BLOOD COUNT 4.04 MIL/MM3 (4.00-5.30); RED CELL DISTRIBUTION WIDTH 13.9 % (11.6-17.2); WHITE BLOOD COUNT 12.8 TH/MM3 (4.0-11.0)
[2017-12-12 12:31] VITALS: BP 120/76; PULSE 92; RESP 16; TEMP 97.8; O2SAT 99
[2017-12-12 12:50] LABS: ALBUMIN 3.8 GM/DL (3.4-5.0); ALKALINE PHOSPHATASE 73 U/L (45-117); ALT (GPT) 24 U/L (10-53); AST (GOT) 33 U/L (15-37); BICARBONATE 25.7 MEQ/L (21.0-32.0); BLOOD UREA NITROGEN 15 MG/DL (7-18); CALCIUM 9.5 MG/DL (8.5-10.1); CHLORIDE 102 MEQ/L (98-107); CREATININE 0.72 MG/DL (0.50-1.00); GLOMERULAR FILTRATION RATE 77 ML/MIN (>89); GLUCOSE,RANDOM 89 MG/DL (74-106); SODIUM (NA) 138 MEQ/L (136-145); TOTAL BILIRUBIN ADULT 0.5 MG/DL (0.2-1.0); TOTAL PROTEIN 8.3 GM/DL (6.4-8.2)
[2017-12-12] MEDS ORDERED: cefTRIAXone INJ 1,000 MG in SODIUM CHLORIDE 0.9% INJ 100 ML IV ONE (13:30)
[2017-12-12 13:45] VITALS: BP 130/74; PULSE 77; RESP 16; TEMP 97.8; O2SAT 98
--- NOTE | 2017-12-12 14:28 | HHI.FF ---
Face to Face Verification Diagnosis: (1) UTI (urinary tract infection) (2) Debility Physical Therapy Order: Evaluate and Treat Home Health Aide Order: To Assist In: Bathing and personal care I have seen patient Telma Almanza on 12/12/17. My clinical findings support the need for the requested home health care services because: Deconditioned w/ increased weakness I certify that my clinical findings support that this patient is homebound because: Unsteady gait/balance Ludwin Lozano MD Dec 12, 2017 14:28
[2017-12-12 16:50] VITALS: BP 132/77; TEMP 97.7
[2017-12-13] MEDS ORDERED: DIAZ2 PO (16:24)
== END 2017-12-12 16:50 | disposition home or self-care (01) ==
LOC: NEPC 11:02
DX: N30.00 Acute cystitis without hematuria (principal); I11.0 Hypertensive heart disease with heart failure; I50.9 Heart failure, unspecified; I25.2 Old myocardial infarction; J44.9 Chronic obstructive pulmonary disease, unspecified; E78.00 Pure hypercholesterolemia, unspecified; E11.9 Type 2 diabetes mellitus without complications; Z85.3 Personal history of malignant neoplasm of breast; Z95.1 Presence of aortocoronary bypass graft; Z88.5 Allergy status to narcotic agent; Z88.8 Allergy status to other drugs, medicaments and biological substances; Z79.4 Long term (current) use of insulin; Z79.82 Long term (current) use of aspirin; Z79.899 Other long term (current) drug therapy
CPT/HCPCS: 80053; 82550; 82552; 83605; 84443; 85025; 96361; 96365; 97161; 99284; G8987; G8988; J0696; J7040

== ENCOUNTER 2017-12-13 10:55 | Inpatient (IN) | payer MEDICARE, BC ==
[2017-12-13 11:06] VITALS: BP 130/79; PULSE 80; RESP 20; TEMP 98.1; O2SAT 99
--- NOTE | 2017-12-13 12:02 | PD ---
HPI Chief Complaint: General Weakness Time Seen by Provider: 11:07 Travel History International Travel<30 days: No Contact w/Intl Traveler<30days: No Traveled to known affect area: No History of Present Illness HPI 87-year-old woman who presents to the emergency department complaining of generalized weakness. She has been seen in the emergency department twice for this over the past 2 days, and an ambulance has been at her house another time prior to that to help her for weakness but she did not come to the hospital that time. She has been diagnosed with a UTI. Previous workup has included urine culture that grew pansensitive E. coli, CBCs have been unremarkable, CMP is within unremarkable, troponins were negative, lactate been normal, CT head, chest x-ray been normal. Patient's previous functional status is that she is independent. She does have a walker that she reduce for long distances but did not use it routinely. She drives, is independent in her IADLs. Physical therapy saw the patient yesterday, and they were arranging for home health. She has been feeling more weak, could not get out of bed, and called a neighbor to help her this morning. History Past Medical History Narrative Medical CAD, CABG, followed by Jennifer Hyperlipidemia COPD CHF Hard of hearing Hypertension Primary care physician is [facility] Menopausal: Yes : 3 Para: 3 Social History Alcohol Use: No Tobacco Use: No Allergies-Medications (Allergen,Severity, Reaction): Coded Allergies: morphine (Verified Allergy, Severe, Itching, 12/12/17) scopolamine (Verified Allergy, Severe, HALLUCINATES, 12/12/17) adenosine (Verified Adverse Reaction, Severe, Arrhythmias, 12/12/17) codeine (Verified Adverse Reaction, Severe, Confusion, 12/12/17) meperidine (Verified Adverse Reaction, Severe, N/V, 12/12/17) CONFUSION acetaminophen (Verified Adverse Reaction, Intermediate, CONFUSION, 12/12/17 ) oxycodone (Verified Adverse Reaction, Intermediate, CONFUSION, 12/12/17) Reported Meds & Prescriptions Reported Meds & Active Scripts Active Macrobid (Nitrofurantoin Monoh/Nitrofur Macro) 100 Mg Cap 100 Mg PO BID 5 Days Reported Novolin N Inj (Insulin Human NPH) 100 Unit/Ml Inj 45 Units SQ AC BREAKFAST Novolin R Relion (Insulin Regular (Human)) 100 Unit/Ml Inj 1 Units SQ DIRECTED Zocor (Simvastatin) 40 Mg Tab 40 Mg PO DAILY Furosemide 20 Mg Tab 20 Mg PO DAILY Spironolactone 25 Mg Tab 25 Mg PO DAILY Aspir-81 (Aspirin) 81 Mg Tabdr 1 Tab PO DAILY Review of Systems Except as stated in HPI: all other systems reviewed are Neg Physical Exam Narrative GENERAL: 87-year-old woman, no acute distress. Generalized weakness. SKIN: Focused skin assessment warm/dry. HEAD: Atraumatic. Normocephalic. EYES: Pupils equal and round. No scleral icterus. No injection or drainage. ENT: No nasal bleeding or discharge. Mucous membranes pink and moist. NECK: Trachea midline. No JVD. CARDIOVASCULAR: Regular rate and rhythm. No murmur appreciated. RESPIRATORY: No accessory muscle use. Clear to auscultation. Breath sounds equal bilaterally. GASTROINTESTINAL: Abdomen soft, non-tender, nondistended. Hepatic and splenic margins not palpable. MUSCULOSKELETAL: No obvious deformities. No clubbing. No cyanosis. No edema. NEUROLOGICAL: Awake and alert. No obvious cranial nerve deficits. Motor grossly within normal limits. Normal speech. PSYCHIATRIC: Appropriate mood and affect; insight and judgment normal. Data Data Last Documented VS Vital Signs Date Time Temp Pulse Resp B/P (MAP) Pulse Ox O2 Delivery O2 Flow Rate FiO2 12/13/17 11:06 98.1 80 20 130/79 (96) 99 Orders Orders Complete Blood Count With Diff (12/13/17 11:23) Comprehensive Metabolic Panel (12/13/17 11:23) Urinalysis - C+S If Indicated (12/13/17 11:23) Iv Access Insert/Monitor (12/13/17 11:23) Troponin I (12/13/17 11:50) Admit Order (Ed Use Only) (12/13/17 ) Vital Signs (Adult) Q4H (12/13/17 13:57) Diet Heart Healthy (12/13/17 Lunch) Activity Bed Rest (12/13/17 13:57) Notify Dr: Other (12/13/17 13:57) Labs Laboratory Tests Test 12/13/17 11:40 12/13/17 11:50 Urine Color YELLOW Urine Turbidity CLEAR Urine pH 6.5 Urine Specific [place] 1.016 Urine Protein NEG mg/dL Urine Glucose (UA) NEG mg/dL Urine Ketones NEG mg/dL Urine Occult Blood NEG Urine Nitrite NEG Urine Bilirubin NEG Urine Urobilinogen 2.0 MG/DL Urine Leukocyte Esterase TRACE Urine RBC 2 /hpf Urine WBC 2 /hpf Urine Squamous Epithelial Cells <1 /hpf Urine Bacteria RARE /hpf Microscopic Urinalysis Comment CULT NOT INDICATED White Blood Count 13.2 TH/MM3 Red Blood Count 4.15 MIL/MM3 Hemoglobin 13.0 GM/DL Hematocrit 38.7 % Mean Corpuscular Volume 93.2 FL Mean Corpuscular Hemoglobin 31.4 PG Mean Corpuscular Hemoglobin Concent 33.7 % Red Cell Distribution Width 14.2 % Platelet Count 348 TH/MM3 Mean Platelet Volume 8.1 FL Neutrophils (%) (Auto) 76.3 % Lymphocytes (%) (Auto) 16.3 % Monocytes (%) (Auto) 5.8 % Eosinophils (%) (Auto) 1.2 % Basophils (%) (Auto) 0.4 % Neutrophils # (Auto) 10.1 TH/MM3 Lymphocytes # (Auto) 2.1 TH/MM3 Monocytes # (Auto) 0.8 TH/MM3 Eosinophils # (Auto) 0.2 TH/MM3 Basophils # (Auto) 0.0 TH/MM3 CBC Comment DIFF FINAL Differential Comment Blood Urea Nitrogen 10 MG/DL Creatinine 0.62 MG/DL Random Glucose 58 MG/DL Total Protein 7.7 GM/DL Albumin 3.6 GM/DL Calcium Level 9.0 MG/DL Alkaline Phosphatase 64 U/L Aspartate Amino Transf (AST/SGOT) 37 U/L Alanine Aminotransferase (ALT/SGPT) 23 U/L Total Bilirubin 0.6 MG/DL Sodium Level 138 MEQ/L Potassium Level 3.8 MEQ/L Chloride Level 105 MEQ/L Carbon Dioxide Level 24.1 MEQ/L Anion Gap 9 MEQ/L Estimat Glomerular Filtration Rate 91 ML/MIN Troponin I LESS THAN 0.02 NG/ML [facility] Medical Decision Making Medical Screen Exam Complete: Yes Emergency Medical Condition: Yes Medical Record Reviewed: Yes Interpretation(s) LABS: CBC remarkable for leukocytosis. CMP unremarkable. Troponin negative. UA with rare bacteria, no pyuria. Differential Diagnosis Weakness, UTI, electrolyte abnormality, ACS, other Narrative Course Medical decision making 87-year-old woman with about a week's worth of progressive weakness, now unable to get out of bed, multiple previous ED evaluations. PT saw patient yesterday. Patient will need to be admitted, further evaluation. Will check labs, compared to previous. She did have what appeared to be some urinary retention, unable to void when she got up on the bedside commode. She had about 800 cc of urine in her bladder with Nicole catheter placement. FINAL: Patient with UTI, persistent clinical symptoms despite outpatient treatment, possibly related to some urinary retention. White count elevated with a little bit of rapid heart rate respiratory rate, possible early sepsis. Recommend antibiotics, admission. Diagnosis Primary Impression: UTI (urinary tract infection) Additional Impression: Weakness Admitting Information Admitting Physician Requests: Admit Amado Wing MD Dec 13, 2017 12:02
[2017-12-13 12:09] LABS: AUTOMATED NEUTROPHIL # 10.1 TH/MM3 (1.8-7.7); BASOPHIL % 0.4 % (0.0-2.0); EOSINOPHIL # 0.2 TH/MM3 (0-0.4); EOSINOPHIL % 1.2 % (0.0-4.0); HEMATOCRIT 38.7 % (35.0-46.0); LYMPH % 16.3 % (9.0-44.0); LYMPHOCYTE # 2.1 TH/MM3 (1.0-4.8); MEAN CELL VOLUME 93.2 FL (80.0-100.0); MEAN CORPUSCULAR HEMOGLOBIN 31.4 PG (27.0-34.0); MEAN CORPUSCULAR HGB CONC 33.7 % (32.0-36.0); MEAN PLATELET VOLUME 8.1 FL (7.0-11.0); MONO % 5.8 % (0.0-8.0); MONOCYTE # 0.8 TH/MM3 (0-0.9); NEUT % 76.3 % (16.0-70.0); PLATELET COUNT 348 TH/MM3 (150-450); RED BLOOD COUNT 4.15 MIL/MM3 (4.00-5.30); RED CELL DISTRIBUTION WIDTH 14.2 % (11.6-17.2); WHITE BLOOD COUNT 13.2 TH/MM3 (4.0-11.0)
[2017-12-13 12:16] LABS: BACTERIA, URINE RARE /hpf; BILIRUBIN, URINE NEG (NEG); BLOOD, URINE NEG (NEG); GLUCOSE,URINE NEG (NEG); KETONE, URINE NEG (NEG); NITRITE,URINE NEG (NEG); PH, URINE 6.5 (5.0-8.5); SQUAMOUS EPITHELIAL CELL URINE <1 /hpf (0-5); URINE COLOR YELLOW (YELLW/STRAW); URINE LEUKOCYTE ESTERASE TRACE (NEG)
[2017-12-13 12:56] LABS: ALKALINE PHOSPHATASE 64 U/L (45-117); TOTAL BILIRUBIN ADULT 0.6 MG/DL (0.2-1.0); TOTAL PROTEIN 7.7 GM/DL (6.4-8.2)
[2017-12-13 13:00] LABS: ALBUMIN 3.6 GM/DL (3.4-5.0); ALT (GPT) 23 U/L (10-53); AST (GOT) 37 U/L (15-37); BICARBONATE 24.1 MEQ/L (21.0-32.0); BLOOD UREA NITROGEN 10 MG/DL (7-18); CHLORIDE 105 MEQ/L (98-107); CREATININE 0.62 MG/DL (0.50-1.00); GLOMERULAR FILTRATION RATE 91 ML/MIN (>89); GLUCOSE,RANDOM 58 MG/DL (74-106); SODIUM (NA) 138 MEQ/L (136-145)
[2017-12-13 13:32] LABS: TROPONIN I LESS THAN 0.02 NG/ML (0.02-0.05)
[2017-12-13] MEDS ORDERED: ONDANSETRON HCL 4 MG/2 ML VIAL IVP PRN (14:00)
[2017-12-13] MEDS ORDERED: MAGNESIUM HYDROXIDE SUSP 30 ML CUP PO PRN (14:00)
[2017-12-13] MEDS ORDERED: BISACODYL 10 MG SUPP RECTAL PRN (14:00)
[2017-12-13] MEDS ORDERED: LACTULOSE SYRUP 20 GM/30 ML CUP PO PRN (14:00)
[2017-12-13] MEDS ORDERED: SENNOSIDES 8.6 MG TAB PO PRN (14:00)
[2017-12-13] MEDS ORDERED: SODIUM CHLORIDE 0.9% FLUSH 10 ML FLUSH IV FLUSH PRN (14:00)
[2017-12-13] MEDS ORDERED: NALOXONE HCL 0.4 MG/ML AMP IV PUSH PRN (14:00)
[2017-12-13 14:24] VITALS: BP 126/86; PULSE 94; RESP 18; O2SAT 98
[2017-12-13 14:27] LABS: PHOSPHORUS 3.5 MG/DL (2.5-4.9)
[2017-12-13] MEDS ORDERED: GLUCAGON 1 MG/ML VIAL OTHER PRN (14:30)
[2017-12-13] MEDS ORDERED: DEXTROSE 50% IN WATER 50 ML VIAL(D50) IV PUSH PRN (14:30)
--- NOTE | 2017-12-13 14:30 | HHI.HP ---
HPI [facility] Hospitalists Primary Care Physician Alon Houston MD Admission Diagnosis UTI weakness Diagnoses: Chief Complaint: Generalized weakness Confusion Urinary retention Travel History International Travel<30 Days: No Contact w/Intl Traveler <30 Da: No Traveled to Known Affected Are: No Sepsis Criteria SIRS Criteria (2 or more): RR > 20 or PaCO2 < 32, WBC > 67360, < 4000 or > 10 % bands Criteria Outcome: Meets sepsis criteria History of Present Illness Written by Delma Vera, acting as scribe for Dr. Ochoa on 12/13/17 at 14: 16. This is an 87yo female with past medical history significant for coronary artery disease status post previous CABG in 2009, hypertension, dyslipidemia and diabetes mellitus type 2 who presents to [facility] ED with complaints of progressive weakness 6 days. This is the patient's third visit to the ED with the same complaints of weakness this week. She was diagnosed with E. coli urinary tract infection yesterday and was started on antibiotics. Patient denies any complaints of dysuria while at home. She reports progressive generalized weakness worse in the legs. She denies any fever or chills. She denies any vision changes or headache. She does state that she was confused this morning which is new for her. She is also unable to urinate this morning. She denies any associated back pain, saddle paresthesias, bowel or bladder incontinence. She denies any diarrhea or constipation. She denies any nausea, vomiting or abdominal pain. She denies any chest pain or shortness of breath. She does report 11 pound weight loss recently. She reports a recent illness with nasal congestion and cough with greenish sputum production 3 weeks ago but this has since resolved. She endorses tight blood sugar control and states that she tries to keep her blood sugars between 80 and 100. She did not use her insulin this morning. She states this morning she was unable to get out of bed. She does not think that her symptoms are related to urinary tract infection states that she has always had bacteria in her urine. She follows with Dr. Rodriguez who recently took her off of metoprolol due to low blood pressure. Review of Systems Except as stated in HPI: all other systems reviewed are Neg Past Family Social History Past Medical History CAD with hx of previous SC s/p CABG HTN DM CHF HLD Hx of breast cancer at age 19 s/p radiation treatment Past Surgical History CABG 2010 cardiac stent 2004 Cataract surgery CTR Cholecystectomy Hysterectomy Reported Medications Macrobid (Nitrofurantoin Monoh/Nitrofur Macro) 100 Mg Cap 100 Mg PO BID 5 Days Novolin N Inj (Insulin Human NPH) 100 Unit/Ml Inj 45 Units SQ AC BREAKFAST Novolin R Relion (Insulin Regular (Human)) 100 Unit/Ml Inj 1 Units SQ DIRECTED Zocor (Simvastatin) 40 Mg Tab 40 Mg PO DAILY Furosemide 20 Mg Tab 20 Mg PO DAILY Spironolactone 25 Mg Tab 25 Mg PO DAILY Aspir-81 (Aspirin) 81 Mg Tabdr 1 Tab PO DAILY Allergies: Coded Allergies: morphine (Verified Allergy, Severe, Itching, 12/12/17) scopolamine (Verified Allergy, Severe, HALLUCINATES, 12/12/17) adenosine (Verified Adverse Reaction, Severe, Arrhythmias, 12/12/17) codeine (Verified Adverse Reaction, Severe, Confusion, 12/12/17) meperidine (Verified Adverse Reaction, Severe, N/V, 12/12/17) CONFUSION acetaminophen (Verified Adverse Reaction, Intermediate, CONFUSION, 12/12/17 ) oxycodone (Verified Adverse Reaction, Intermediate, CONFUSION, 12/12/17) Active Ordered Medications Current Medications Medications (Trade) Dose Ordered Sig/Ganesh Route Start Time Stop Time Status Last Admin Sodium Chloride 1,000 ml @ 75 mls/hr [id number] IV 12/13/17 13:59 UNV (NS Flush) 2 ml UNSCH PRN IV FLUSH 12/13/17 14:00 UNV (NS Flush) 2 ml BID IV FLUSH 12/13/17 21:00 UNV (Zofran Inj) 4 mg Q6H PRN IVP 12/13/17 14:00 UNV (Heparin Inj) 5,000 units Q12H SQ 12/13/17 14:00 UNV (Narcan Inj) 0.4 mg UNSCH PRN IV PUSH 12/13/17 14:00 UNV (Milk Of Magnesia Liq) 30 ml Q12H PRN PO 12/13/17 14:00 UNV (Senokot) 17.2 mg Q12H PRN PO 12/13/17 14:00 UNV (Dulcolax Supp) 10 mg DAILY PRN RECTAL 12/13/17 14:00 UNV (Lactulose Liq) 30 ml DAILY PRN PO 12/13/17 14:00 UNV Ceftriaxone Sodium 1000 mg/ Sodium Chloride 100 ml @ 200 mls/hr Q24H IV 12/13/17 14:00 UNV (Ecotrin Ec) 81 mg DAILY PO 12/14/17 09:00 UNV Non-Formulary Medication 40 mg DAILY PO 12/14/17 09:00 UNV (NovoLOG SUPPLEMENTAL SCALE) 1 ACHS SLIDING SCALE SQ 12/13/17 17:00 UNV Family History Mother, CHF Social History Patient denies any tobacco use or EtOH consumption. She denies any illicit drug use. She is a retired nurse. Patient lives alone. She is fully functional with all her activities of daily living. She continues to drive. Physical Exam Vital Signs Vital Signs Date Time Temp Pulse Resp B/P (MAP) Pulse Ox O2 Delivery O2 Flow Rate FiO2 12/13/17 11:06 98.1 80 20 130/79 (96) 99 Physical Exam GENERAL: This is a well-nourished, well-developed elderly female patient, in no apparent distress. Awake and alert. SKIN: No rashes, ecchymoses or lesions. Cool and dry. HEAD: Atraumatic. Normocephalic. No temporal or scalp tenderness. EYES: Pupils equal round and reactive. Extraocular motions intact. No scleral icterus. No injection or drainage. ENT: Nose without bleeding or purulent drainage. Throat without erythema, tonsillar hypertrophy or exudate. Uvula midline. Airway patent. NECK: Trachea midline. No JVD or lymphadenopathy. Supple, nontender, no meningeal signs. CARDIOVASCULAR: Regular rate and rhythm without murmurs, gallops, or rubs. RESPIRATORY: Clear to auscultation. Breath sounds equal bilaterally. No wheezes , rales, or rhonchi. GASTROINTESTINAL: Abdomen soft, non-tender, nondistended. No hepato-splenomegaly , or palpable masses. No guarding. MUSCULOSKELETAL: Extremities without clubbing, cyanosis, or edema. No joint tenderness, effusion, or edema noted. No calf tenderness. NEUROLOGICAL: Awake and alert. Cranial nerves II through XII intact. Motor and sensory grossly within normal limits. Five out of 5 muscle strength in all muscle groups. Normal speech. Laboratory Laboratory Tests Test 12/13/17 11:40 12/13/17 11:50 Urine Color YELLOW Urine Turbidity CLEAR Urine pH 6.5 Urine Specific Gilson 1.016 Urine Protein NEG Urine Glucose (UA) NEG Urine Ketones NEG Urine Occult Blood NEG Urine Nitrite NEG Urine Bilirubin NEG Urine Urobilinogen 2.0 Urine Leukocyte Esterase TRACE Urine RBC 2 Urine WBC 2 Urine Squamous Epithelial Cells <1 Urine Bacteria RARE Microscopic Urinalysis Comment CULT NOT INDICATED White Blood Count 13.2 Red Blood Count 4.15 Hemoglobin 13.0 Hematocrit 38.7 Mean Corpuscular Volume 93.2 Mean Corpuscular Hemoglobin 31.4 Mean Corpuscular Hemoglobin Concent 33.7 Red Cell Distribution Width 14.2 Platelet Count 348 Mean Platelet Volume 8.1 Neutrophils (%) (Auto) 76.3 Lymphocytes (%) (Auto) 16.3 Monocytes (%) (Auto) 5.8 Eosinophils (%) (Auto) 1.2 Basophils (%) (Auto) 0.4 Neutrophils # (Auto) 10.1 Lymphocytes # (Auto) 2.1 Monocytes # (Auto) 0.8 Eosinophils # (Auto) 0.2 Basophils # (Auto) 0.0 CBC Comment DIFF FINAL Differential Comment Blood Urea Nitrogen 10 Creatinine 0.62 Random Glucose 58 Total Protein 7.7 Albumin 3.6 Calcium Level 9.0 Alkaline Phosphatase 64 Aspartate Amino Transf (AST/SGOT) 37 Alanine Aminotransferase (ALT/SGPT) 23 Total Bilirubin 0.6 Sodium Level 138 Potassium Level 3.8 Chloride Level 105 Carbon Dioxide Level 24.1 Anion Gap 9 Estimat Glomerular Filtration Rate 91 Troponin I LESS THAN 0.02 Result Diagram: 12/13/17 1150 12/13/17 1150 Caprini VTE Risk Assessment Caprini VTE Risk Assessment: Mod/High Risk (score >= 2) Caprini Risk Assessment Model Point Value = 1 Point Value = 2 Point Value = 3 Point Value = 5 Age 41-60 Minor surgery BMI > 25 kg/m2 Swollen legs Varicose veins or History of unexplained or recurrent spontaneous Oral contraceptives or hormone replacement Sepsis (< 1 month) Serious lung disease, including pneumonia (< 1 month) Abnormal pulmonary function Acute myocardial infarction Congestive heart failure (< 1 month) History of inflammatory bowel disease Medical patient at bed rest Age 61-74 Arthroscopic surgery Major open surgery (> 45 min) Laparoscopic surgery (> 45 min) Malignancy Confined to bed (> 72 hours) Immobilizing plaster cast Central venous access Age >= 75 History of VTE Family history of VTE Factor V Leiden Prothrombin [id number] Lupus anticoagulant Anticardiolipin antibodies Elevated serum homocysteine Heparin-induced thrombocytopenia Other congenital or acquired thrombophilia Stroke (< 1 month) Elective arthroplasty Hip, pelvis, or leg fracture Acute spinal cord injury (< 1 month) Prophylaxis Regimen Total Risk Factor Score Risk Level Prophylaxis Regimen 0-1 Low Early ambulation 2 Moderate Order ONE of the following: *Sequential Compression Device (SCD) *Heparin 5000 units SQ BID 3-4 Higher Order ONE of the following medications: *Heparin 5000 units SQ TID *Enoxaparin/Lovenox 40 mg SQ daily (WT < 150 kg, CrCl > 30 mL/min) *Enoxaparin/Lovenox 30 mg SQ daily (WT < 150 kg, CrCl > 10-29 mL/min) *Enoxaparin/Lovenox 30 mg SQ BID (WT < 150 kg, CrCl > 30 mL/min) AND/OR *Sequential Compression Device (SCD) 5 or more Highest Order ONE of the following medications: *Heparin 5000 units SQ TID (Preferred with Epidurals) *Enoxaparin/Lovenox 40 mg SQ daily (WT < 150 kg, CrCl > 30 mL/min) *Enoxaparin/Lovenox 30 mg SQ daily (WT < 150 kg, CrCl > 10-29 mL/min) *Enoxaparin/Lovenox 30 mg SQ BID (WT < 150 kg, CrCl > 30 mL/min) AND *Sequential Compression Device (SCD) Assessment and Plan Assessment and Plan 87yo female with past medical history significant for coronary artery disease status post previous CABG in 2009, hypertension, dyslipidemia and diabetes mellitus type 2 who presents to [facility] ED with complaints of progressive weakness 6 days. //Sepsis with leukocytosis with white count 13.2, elevated RR and UTI, failed outpatient treatment -CXR 12/11/17 shows no acute disease, images reviewed by me -UCX positive for E Coli 12/12/17, treated with Macrobid as outpatient and given one-time dose of Rocephin. Repeat UCX pending, follow up on results -IV Rocephin -IVF -continuous cardiac monitoring //Progressive weakness //Urinary retention -CT head 12/11/17 negative for evidence of acute intracranial process, images reviewed by me -Consult Neurology, appreciate assistance -Orthostatic BP measurements -neuro checks -PT eval/tx -continue edmondson for now, urinary catheter management -ASA daily -Obtain B12, MMA, Vitamin D and phosphorus levels -fall precautions //Hypoglycemia, suspect contributing to weakness //DM, type 2, insulin dependent -random glucose 58 -Hold home dose of insulin -obtain HgbA1c -accucheks with ISS //CAD with hx of CABG -patient has no cardiac complaints -continuous cardiac monitoring //CHF, not decompensated -Hold Aldactone and furosemide for now -Monitor closely for signs of fluid overload //HTN -controlled off antihypertensive medication -Continue to monitor BP closely and adjust treatment as needed //Dyslipidemia -Resume home dose of simvastatin 40 mg daily DVT prophylaxis -Heparin sq Discussed Condition With ED physician, patient Physician Certification 2 Midnight Certification Type: Admission for Inpatient Services Order for Inpatient Services The services are ordered in accordance with Medicare regulations or non- Medicare payer requirements, as applicable. In the case of services not specified as inpatient-only, they are appropriately provided as inpatient services in accordance with the 2-midnight benchmark. Estimated LOS (days): 3 3 days is the estimated time the patient will need to remain in the hospital, assuming treatment plan goals are met and no additional complications. Post-Hospital Plan: Not yet determined Notes: This note was transcribed by dago Vera. I, Dr. Josh Ochoa personally performed the history, physical exam, and medical decision making; and confirmed the accuracy of the information in the transcribed note. Authenticated by Dr. Josh Ochoa on 12/14/17 at 13:09. Delma Vera Dec 13, 2017 14:30 Josh Ochoa MD Dec 14, 2017 13:09
[2017-12-13 16:00] VITALS: BP 125/60; PULSE 97; RESP 19; TEMP 96; O2SAT 98
[2017-12-13] MEDS ORDERED: DIAZ2 PO (16:24)
[2017-12-13] MEDS: cefTRIAXone INJ 1,000 MG in SODIUM CHLORIDE 0.9% INJ 100 ML IV SCH (16:36)
[2017-12-13] MEDS: HEPARIN SODIUM - SQ 10,000 UNITS/ML VIAL SQ SCH (16:37)
[2017-12-13] MEDS: SODIUM CHLOR 0.45% 1000 ML INJ 1,000 ML IV SCH (16:37)
[2017-12-13] MEDS: INSULIN ASPART SUPPLEMENTAL SCALE SQ SCH ×2 (17:00→20:47)
[2017-12-13 20:00] VITALS: BP 104/70; PULSE 95; RESP 15; TEMP 98.3; O2SAT 98
[2017-12-13] MEDS: SODIUM CHLORIDE 0.9% FLUSH 10 ML FLUSH IV FLUSH SCH (20:47)
[2017-12-13] MEDS ORDERED: PRAVASTATIN SOD 80 MG TAB PO SCH (21:00)
[2017-12-14] VITALS (7 sets, daily range): BP systolic 112–137; BP diastolic 60–83; PULSE 88–158; RESP 15–18; TEMP 96.7–99.5; O2SAT 96–98
[2017-12-14] MEDS: SODIUM CHLOR 0.45% 1000 ML INJ 1,000 ML IV SCH ×2 (03:08→17:28)
[2017-12-14] MEDS: HEPARIN SODIUM - SQ 10,000 UNITS/ML VIAL SQ SCH ×2 (03:10→16:20)
[2017-12-14] MEDS: INSULIN ASPART SUPPLEMENTAL SCALE SQ SCH ×4 (08:00→20:15)
[2017-12-14] MEDS: ASPIRIN EC 81 MG TABEC PO SCH (08:32)
[2017-12-14] MEDS: SODIUM CHLORIDE 0.9% FLUSH 10 ML FLUSH IV FLUSH SCH ×2 (08:37→20:16)
[2017-12-14 08:39] LABS: BASOPHIL % 0.3 % (0.0-2.0); EOSINOPHIL # 0.2 TH/MM3 (0-0.4); EOSINOPHIL % 1.8 % (0.0-4.0); HEMATOCRIT 34.6 % (35.0-46.0); HEMOGLOBIN 11.8 GM/DL (11.6-15.3); LYMPH % 22.9 % (9.0-44.0); LYMPHOCYTE # 2.1 TH/MM3 (1.0-4.8); MEAN CELL VOLUME 93.5 FL (80.0-100.0); MEAN CORPUSCULAR HGB CONC 34.2 % (32.0-36.0); MEAN PLATELET VOLUME 8.2 FL (7.0-11.0); MONO % 7.8 % (0.0-8.0); MONOCYTE # 0.7 TH/MM3 (0-0.9); NEUT % 67.2 % (16.0-70.0); PLATELET COUNT 288 TH/MM3 (150-450); RED CELL DISTRIBUTION WIDTH 14.3 % (11.6-17.2)
[2017-12-14] MEDS ORDERED: PRAVASTATIN SOD 80 MG TAB PO SCH (09:00)
[2017-12-14 09:06] LABS: ALKALINE PHOSPHATASE 60 U/L (45-117); ALT (GPT) 16 U/L (10-53); AST (GOT) 21 U/L (15-37); BICARBONATE 25.7 MEQ/L (21.0-32.0); BLOOD UREA NITROGEN 9 MG/DL (7-18); CHLORIDE 104 MEQ/L (98-107); CREATININE 0.59 MG/DL (0.50-1.00); GLOMERULAR FILTRATION RATE 96 ML/MIN (>89); GLUCOSE,RANDOM 112 MG/DL (74-106); SODIUM (NA) 139 MEQ/L (136-145); TOTAL BILIRUBIN ADULT 0.4 MG/DL (0.2-1.0); TOTAL PROTEIN 6.5 GM/DL (6.4-8.2)
[2017-12-14] MEDS ORDERED: ZOLPIDEM TARTRATE 5 MG TAB PO PRN (11:45)
--- NOTE | 2017-12-14 11:52 | HHI.PR ---
Subjective Remarks Patient seen and examined this morning. Temperature 96.7, pulse 94, respiratory rate 18, blood pressure 121/71, pulse ox 98 on room air. She reports that she is feeling a lot better today. Denies feeling feverish. Denies feeling confused. Admits to feeling weak at this time. Informed her that I will have physical therapy see her and she is looking forward to it. She is concerned that the cause of her symptoms was her blood sugars and not her urinary tract infection. At time of admission her blood glucose was 58, she denies ever being that low. Objective Vitals Vital Signs Date Time Temp Pulse Resp B/P (MAP) Pulse Ox O2 Delivery O2 Flow Rate FiO2 12/14/17 08:00 96.7 94 18 121/71 (88) 97 12/14/17 04:00 99.5 96 15 112/60 (77) 97 12/14/17 00:00 96.8 94 15 119/81 (94) 97 12/13/17 20:00 98.3 95 15 104/70 (81) 98 12/13/17 16:00 96.0 97 19 125/60 (81) 98 12/13/17 14:24 94 18 126/86 (99) 98 I/O 12/13/17 12/13/17 12/13/17 12/14/17 12/14/17 12/14/17 07:00 15:00 23:00 07:00 15:00 23:00 Intake Total 1100 ml 1131 ml Output Total 1300 ml 850 ml Balance -200 ml 281 ml Intake Oral 1100 ml IV Total 1131 ml Output Urine Total 1300 ml 850 ml Result Diagram: 12/14/1770412/14/17 07 Objective Remarks GEN: Well-developed, well-nourished elderly patient. No acute distress. CV: Regular rate and rhythm without obvious murmurs LUNGS: Clear to auscultation bilaterally. Normal respiratory effort. No wheezes , rales, rhonchi. GI: Soft, nontender, nondistended. No palpable masses. Bowel sounds WNL. EXT: No edema. NEURO/PSYCH: Afocal. Awake, alert, and oriented x3. Appropriate insight and judgment. Medications and IVs Current Medications Medications (Trade) Dose Ordered Sig/Ganesh Route Start Time Stop Time Status Last Admin Sodium Chloride 1,000 ml @ 75 mls/hr [id number] IV 12/13/17 13:59 12/14/17 03:08 (NS Flush) 2 ml UNSCH PRN IV FLUSH 12/13/17 14:00 (NS Flush) 2 ml BID IV FLUSH 12/13/17 21:00 (Zofran Inj) 4 mg Q6H PRN IVP 12/13/17 14:00 (Heparin Inj) 5,000 units Q12H SQ 12/13/17 15:00 12/14/17 03:10 (Narcan Inj) 0.4 mg UNSCH PRN IV PUSH 12/13/17 14:00 (Milk Of Magnesia Liq) 30 ml Q12H PRN PO 12/13/17 14:00 (Senokot) 17.2 mg Q12H PRN PO 12/13/17 14:00 (Dulcolax Supp) 10 mg DAILY PRN RECTAL 12/13/17 14:00 (Lactulose Liq) 30 ml DAILY PRN PO 12/13/17 14:00 Ceftriaxone Sodium 1000 mg/ Sodium Chloride 100 ml @ 200 mls/hr Q24H IV 12/13/17 16:00 12/13/17 16:36 (Ecotrin Ec) 81 mg DAILY PO 12/14/17 09:00 12/14/17 08:32 (Pravachol) 80 mg DAILY PO 12/14/17 09:00 (NovoLOG SUPPLEMENTAL SCALE) 1 ACHS SLIDING SCALE SQ 12/13/17 17:00 12/13/17 20:47 (D50w (Vial) Inj) 50 ml UNSCH PRN IV PUSH 12/13/17 14:30 (Glucagon Inj) 1 mg UNSCH PRN OTHER 12/13/17 14:30 A/P Problem List: (1) HTN (hypertension) ICD Code: I10 - Essential (primary) hypertension (2) Dyslipidemia ICD Code: E78.5 - Hyperlipidemia, unspecified (3) Type 2 diabetes mellitus ICD Code: E11.9 - Type 2 diabetes mellitus without complications (4) Weakness ICD Code: R53.1 - Weakness Status: Acute (5) Debility ICD Code: R53.81 - Other malaise (6) UTI (urinary tract infection) ICD Code: N39.0 - Urinary tract infection, site not specified Status: Acute (7) CAD (coronary artery disease) of bypass graft ICD Code: I25.810 - Atherosclerosis of coronary artery bypass graft(s) without angina pectoris (8) CHF (congestive heart failure) ICD Code: I50.9 - Heart failure, unspecified Assessment and Plan 87yo female with past medical history significant for coronary artery disease status post previous CABG in 2009, hypertension, dyslipidemia and diabetes mellitus type 2 who presents to [facility] ED with complaints of progressive weakness 6 days. Sepsis with leukocytosis with white count 13.2, elevated RR and UTI, failed outpatient treatment -CXR 12/11/17 shows no acute disease -UCX positive for E Coli 12/12/17, treated with Macrobid as outpatient and given one-time dose of Rocephin. Repeat UCX pending, follow up on results -IV Rocephin -IVF -continuous cardiac monitoring Progressive weakness Urinary retention -CT head 12/11/17 negative for evidence of acute intracranial process -Consult Neurology, appreciate assistance -Orthostatic BP measurements -neuro checks -PT eval/tx -continue edmondson for now, urinary catheter management -ASA daily -Obtain B12, MMA, Vitamin D and phosphorus levels -fall precautions Hypoglycemia, suspect contributing to weakness DM, type 2, insulin dependent -Hold home dose of insulin -obtain HgbA1c -accucheks with ISS CAD with hx of CABG -patient has no cardiac complaints -continuous cardiac monitoring CHF, not decompensated -Hold Aldactone and furosemide for now -Monitor closely for signs of fluid overload HTN -controlled off antihypertensive medication -Reconcile blood pressure medications -Continue to monitor BP closely and adjust treatment as needed -Concern for orthostatic hypotension, orthostatic blood pressures ordered results pending Dyslipidemia -Resume home dose of simvastatin 40 mg daily DVT prophylaxis -Heparin sq Yovany Pan MD, R3 Dec 14, 2017 11:52
[2017-12-14] MEDS ORDERED: TORS20TA PO (13:13)
[2017-12-14] MEDS: cefTRIAXone INJ 1,000 MG in SODIUM CHLORIDE 0.9% INJ 100 ML IV SCH (16:20)
[2017-12-14] MEDS: PRAVASTATIN SOD 80 MG TAB PO SCH (20:16)
[2017-12-14] MEDS: DIAZEPAM 2 MG TAB PO PRN (23:16)
[2017-12-15] VITALS: BP 130/86; PULSE 94; RESP 15; TEMP 97.6; O2SAT 98
[2017-12-15] MEDS: HEPARIN SODIUM - SQ 10,000 UNITS/ML VIAL SQ SCH ×2 (03:14→18:01)
[2017-12-15 04:00] VITALS: BP 127/69; PULSE 96; RESP 15; TEMP 97; O2SAT 97
[2017-12-15] MEDS: ACETAMINOPHEN 325 MG TAB PO PRN ×3 (05:06→18:05)
[2017-12-15] MEDS: SODIUM CHLOR 0.45% 1000 ML INJ 1,000 ML IV SCH ×2 (06:15→18:17)
[2017-12-15 07:15] LABS: HEMOGLOBIN 11.7 GM/DL (11.6-15.3); MEAN CELL VOLUME 92.8 FL (80.0-100.0); MEAN CORPUSCULAR HEMOGLOBIN 31.8 PG (27.0-34.0); MEAN CORPUSCULAR HGB CONC 34.3 % (32.0-36.0); MEAN PLATELET VOLUME 8.4 FL (7.0-11.0); PLATELET COUNT 271 TH/MM3 (150-450); RED BLOOD COUNT 3.67 MIL/MM3 (4.00-5.30); RED CELL DISTRIBUTION WIDTH 13.9 % (11.6-17.2); WHITE BLOOD COUNT 9.5 TH/MM3 (4.0-11.0)
[2017-12-15 07:45] LABS: AST (GOT) 18 U/L (15-37); BLOOD UREA NITROGEN 8 MG/DL (7-18); CHLORIDE 105 MEQ/L (98-107); CREATININE 0.59 MG/DL (0.50-1.00); GLOMERULAR FILTRATION RATE 96 ML/MIN (>89); GLUCOSE,RANDOM 157 MG/DL (74-106); SODIUM (NA) 138 MEQ/L (136-145)
[2017-12-15 07:47] LABS: ALT (GPT) 14 U/L (10-53)
[2017-12-15 07:48] LABS: ALKALINE PHOSPHATASE 69 U/L (45-117); TOTAL BILIRUBIN ADULT 0.3 MG/DL (0.2-1.0); TOTAL PROTEIN 6.9 GM/DL (6.4-8.2)
[2017-12-15 08:00] VITALS: BP 119/60; PULSE 95; RESP 18; TEMP 97.8; O2SAT 99
[2017-12-15] MEDS: PRAVASTATIN SOD 80 MG TAB PO SCH (10:03)
[2017-12-15] MEDS: ASPIRIN EC 81 MG TABEC PO SCH (10:03)
[2017-12-15] MEDS: INSULIN ASPART SUPPLEMENTAL SCALE SQ SCH ×4 (10:05→20:55)
[2017-12-15] MEDS: SODIUM CHLORIDE 0.9% FLUSH 10 ML FLUSH IV FLUSH SCH ×2 (10:09→20:55)
[2017-12-15 12:00] VITALS: BP 120/72; PULSE 93; RESP 18; TEMP 97.6; O2SAT 99
[2017-12-15] MEDS ORDERED: traMADol HCL 50 MG TAB PO PRN ×2 (15:45)
[2017-12-15] MEDS ORDERED: BISACODYL 10 MG SUPP RECTAL PRN (15:45)
[2017-12-15] MEDS ORDERED: NALOXONE HCL 0.4 MG/ML AMP IV PUSH PRN (15:45)
[2017-12-15] MEDS ORDERED: MAGNESIUM HYDROXIDE SUSP 30 ML CUP PO PRN (15:45)
[2017-12-15] MEDS ORDERED: LACTULOSE SYRUP 20 GM/30 ML CUP PO PRN (15:45)
[2017-12-15] MEDS ORDERED: ONDANSETRON HCL 4 MG/2 ML VIAL IVP PRN (15:45)
[2017-12-15] MEDS ORDERED: SENNOSIDES 8.6 MG TAB PO PRN (15:45)
[2017-12-15] MEDS ORDERED: METOCLOPRAMIDE HCL 10 MG/2 ML VIAL IV PUSH PRN (15:45)
--- NOTE | 2017-12-15 15:54 | HHI.PR ---
Subjective Remarks This is an 87yo female with past medical history significant for coronary artery disease status post previous CABG in 2010, hypertension, dyslipidemia and diabetes mellitus type 2 who presents to [facility] ED with complaints of progressive weakness 6 days. This is the patient's third visit to the ED with the same complaints of weakness this week. She was diagnosed with E. coli urinary tract infection yesterday and was started on antibiotics. Patient denies any complaints of dysuria while at home. She reports progressive generalized weakness worse in the legs. She denies any fever or chills. She denies any vision changes or headache. She does state that she was confused this morning which is new for her. She is also unable to urinate this morning. She denies any associated back pain, saddle paresthesias, bowel or bladder incontinence. She denies any diarrhea or constipation. She denies any nausea, vomiting or abdominal pain. She denies any chest pain or shortness of breath. She does report 11 pound weight loss recently. She reports a recent illness with nasal congestion and cough with greenish sputum production 3 weeks ago but this has since resolved. She endorses tight blood sugar control and states that she tries to keep her blood sugars between 80 and 100. She did not use her insulin this morning. She states this morning she was unable to get out of bed. She does not think that her symptoms are related to urinary tract infection states that she has always had bacteria in her urine. She follows with Dr. Rodriguez who recently took her off of metoprolol due to low blood pressure. 2-18 Patient seen and examined this morning. Temperature 96.7, pulse 94, respiratory rate 18, blood pressure 121/71, pulse ox 98 on room air. She reports that she is feeling a lot better today. Denies feeling feverish. Denies feeling confused. Admits to feeling weak at this time. Informed her that I will have physical therapy see her and she is looking forward to it. She is concerned that the cause of her symptoms was her blood sugars and not her urinary tract infection. At time of admission her blood glucose was 58, she denies ever being that low. 2-19 WILL DC [place] NEEDS SNF PER PT WILL GET OT [facility] CASE MANAGEMENT AND PATIENT PAIN MEDICATIONS NEEDED AM LABS HOPEFULLY TO SNF IN NEXT 24-48 HOURS Objective Vitals Vital Signs Date Time Temp Pulse Resp B/P (MAP) Pulse Ox O2 Delivery O2 Flow Rate FiO2 12/15/17 12:00 97.6 93 18 120/72 (88) 99 12/15/17 08:00 97.8 95 18 119/60 (79) 99 12/15/17 04:00 97.0 96 15 127/69 (88) 97 12/15/17 00:00 97.6 94 15 130/86 (101) 98 12/14/17 20:00 97.7 89 15 135/75 (95) 96 12/14/17 16:00 98.4 97 18 130/62 (84) I/O 12/14/17 12/14/17 12/14/17 12/15/17 12/15/17 12/15/17 07:00 15:00 23:00 07:00 15:00 23:00 Intake Total 1131 ml 1400 ml Output Total 850 ml 1700 ml 700 ml Balance 281 ml -300 ml -700 ml Intake Oral 1400 ml IV Total 1131 ml Output Urine Total 850 ml 1700 ml 700 ml Result Diagram: 12/15/17 0612 12/15/17 0612 Other Results Laboratory Tests Test 12/13/17 11:40 12/13/17 11:50 12/14/17 07:05 12/15/17 06:12 Urine Color YELLOW Urine Turbidity CLEAR Urine pH 6.5 Urine Specific [place] 1.016 Urine Protein NEG mg/dL Urine Glucose (UA) NEG mg/dL Urine Ketones NEG mg/dL Urine Occult Blood NEG Urine Nitrite NEG Urine Bilirubin NEG Urine Urobilinogen 2.0 MG/DL Urine Leukocyte Esterase TRACE Urine RBC 2 /hpf Urine WBC 2 /hpf Urine Squamous Epithelial Cells <1 /hpf Urine Bacteria RARE /hpf Microscopic Urinalysis Comment CULT NOT INDICATED White Blood Count 13.2 TH/MM3 9.0 TH/MM3 9.5 TH/MM3 Red Blood Count 4.15 MIL/MM3 3.70 MIL/MM3 3.67 MIL/MM3 Hemoglobin 13.0 GM/DL 11.8 GM/DL 11.7 GM/DL Hematocrit 38.7 % 34.6 % 34.0 % Mean Corpuscular Volume 93.2 FL 93.5 FL 92.8 FL Mean Corpuscular Hemoglobin 31.4 PG 32.0 PG 31.8 PG Mean Corpuscular Hemoglobin Concent 33.7 % 34.2 % 34.3 % Red Cell Distribution Width 14.2 % 14.3 % 13.9 % Platelet Count 348 TH/MM3 288 TH/MM3 271 TH/MM3 Mean Platelet Volume 8.1 FL 8.2 FL 8.4 FL Neutrophils (%) (Auto) 76.3 % 67.2 % Lymphocytes (%) (Auto) 16.3 % 22.9 % Monocytes (%) (Auto) 5.8 % 7.8 % Eosinophils (%) (Auto) 1.2 % 1.8 % Basophils (%) (Auto) 0.4 % 0.3 % Neutrophils # (Auto) 10.1 TH/MM3 6.0 TH/MM3 Lymphocytes # (Auto) 2.1 TH/MM3 2.1 TH/MM3 Monocytes # (Auto) 0.8 TH/MM3 0.7 TH/MM3 Eosinophils # (Auto) 0.2 TH/MM3 0.2 TH/MM3 Basophils # (Auto) 0.0 TH/MM3 0.0 TH/MM3 CBC Comment DIFF FINAL DIFF FINAL Differential Comment Blood Urea Nitrogen 10 MG/DL 9 MG/DL 8 MG/DL Creatinine 0.62 MG/DL 0.59 MG/DL 0.59 MG/DL Random Glucose 58 MG/DL 112 MG/DL 157 MG/DL Total Protein 7.7 GM/DL 6.5 GM/DL 6.9 GM/DL Albumin 3.6 GM/DL 3.0 GM/DL 3.0 GM/DL Calcium Level 9.0 MG/DL 9.0 MG/DL 9.0 MG/DL Alkaline Phosphatase 64 U/L 60 U/L 69 U/L Aspartate Amino Transf (AST/SGOT) 37 U/L 21 U/L 18 U/L Alanine Aminotransferase (ALT/SGPT) 23 U/L 16 U/L 14 U/L Total Bilirubin 0.6 MG/DL 0.4 MG/DL 0.3 MG/DL Sodium Level 138 MEQ/L 139 MEQ/L 138 MEQ/L Potassium Level 3.8 MEQ/L 3.3 MEQ/L 3.5 MEQ/L Chloride Level 105 MEQ/L 104 MEQ/L 105 MEQ/L Carbon Dioxide Level 24.1 MEQ/L 25.7 MEQ/L 24.0 MEQ/L Anion Gap 9 MEQ/L 9 MEQ/L 9 MEQ/L Estimat Glomerular Filtration Rate 91 ML/MIN 96 ML/MIN 96 ML/MIN Phosphorus Level 3.5 MG/DL Total Creatine Kinase 265 U/L Creatine Kinase MB 2.2 NG/ML Creatine Kinase MB % 0.8 % Troponin I LESS THAN 0.02 NG/ML Vitamin B12 Level 428 PG/ML 25-Hydroxy Vitamin D Total 27.8 ng/ML Objective Remarks GENERAL: AWAKE ALERT ORIENTED X3 SKIN: Warm and dry. HEAD: Atraumatic. Normocephalic. EYES: Pupils equal and round. No scleral icterus. No injection or drainage. EOMI ENT: No nasal bleeding or discharge. Mucous membranes pink and moist. TONGUE MIDLINE NECK: Trachea midline. No JVD. SUPPLE CARDIOVASCULAR: Regular rate and rhythm. S1, S2 NO S3 OR S4 RESPIRATORY: No accessory muscle use. Clear to auscultation. Breath sounds equal bilaterally. GASTROINTESTINAL: Abdomen soft, non-tender, nondistended. Hepatic and splenic margins not palpable. [place] MUSCULOSKELETAL: Extremities without clubbing, cyanosis, or edema. No obvious deformities. NEUROLOGICAL: Awake and alert. No obvious cranial nerve deficits. Motor grossly within normal limits. 4 out of 5 muscle strength in the arms and legs. Normal speech. PSYCHIATRIC: Appropriate mood and affect; insight and judgment normal. Medications and IVs Current Medications Sodium Chloride 1,000 ml @ 75 mls/hr [id number] IV Last administered on at 06:15; Start 12/13/17 at 13:59 Sodium Chloride (NS Flush) 2 ml UNSCH PRN IV FLUSH FLUSH AFTER USING IV ACCESS ; Start 12/13/17 at 14:00 Sodium Chloride (NS Flush) 2 ml BID IV FLUSH Last administered on 12/15/17at 10: 09; Start 12/13/17 at 21:00 Ondansetron HCl (Zofran Inj) 4 mg Q6H PRN IVP NAUSEA OR VOMITING; Start at 14:00 Heparin Sodium (Porcine) (Heparin Inj) 5,000 units Q12H SQ Last administered on 12/15/17at 03:14; Start 12/13/17 at 15:00 Naloxone HCl (Narcan Inj) 0.4 mg UNSCH PRN IV PUSH SEE LABEL COMMENTS; Start at 14:00 Magnesium Hydroxide (Milk Of Magnesia Liq) 30 ml Q12H PRN PO Mild constipation ; Start 12/13/17 at 14:00 Sennosides (Senokot) 17.2 mg Q12H PRN PO Moderate constipation; Start 12/13/17 at 14:00 Bisacodyl (Dulcolax Supp) 10 mg DAILY PRN RECTAL SEVERE CONSITIPATION; Start at 14:00 Lactulose (Lactulose Liq) 30 ml DAILY PRN PO SEVERE CONSITIPATION; Start at 14:00 Ceftriaxone Sodium 1000 mg/ Sodium Chloride 100 ml @ 200 mls/hr Q24H IV Last administered on 12/14/17at 16:20; Start 12/13/17 at 16:00 Aspirin (Ecotrin Ec) 81 mg DAILY PO Last administered on 12/15/17at 10:03; Start 12/14/17 at 09:00 Pravastatin Sodium (Pravachol) 80 mg DAILY PO ; Start 12/14/17 at 09:00; Stop at 11:40; Status DC Insulin Aspart (NovoLOG SUPPLEMENTAL SCALE) 1 ACHS SLIDING SCALE SQ Last administered on 12/15/17at 13:23; Start 12/13/17 at 17:00 Dextrose (D50w (Vial) Inj) 50 ml UNSCH PRN IV PUSH HYPOGLYCEMIA - SEE COMMENTS ; Start 12/13/17 at 14:30 Glucagon (Glucagon Inj) 1 mg UNSCH PRN OTHER HYPOGLYCEMIA-SEE COMMENTS; Start 12/13/17 at 14:30 Pravastatin Sodium (Pravachol) 80 mg HS PO Last administered on 12/13/17at 22:04 ; Start 12/13/17 at 21:00; Stop 12/14/17 at 10:40; Status DC Pravastatin Sodium (Pravachol) 80 mg DAILY PO Last administered on 12/15/17at 10 :03; Start 12/14/17 at 21:00 Zolpidem Tartrate (Ambien) 5 mg HS PRN PO INSOMNIA; Start 12/14/17 at 11:45; Stop 12/14/17 at 23:05; Status DC Diazepam (Valium) 2 mg HS PRN PO sleep Last administered on 12/14/17at 23:16; Start 12/14/17 at 23:15 Acetaminophen (Tylenol) 650 mg Q4H PRN PO pain Last administered on 12/15/17at 10:08; Start 2/19/18 at 05:00 A/P Problem List: (1) HTN (hypertension) ICD Code: I10 - Essential (primary) hypertension (2) Dyslipidemia ICD Code: E78.5 - Hyperlipidemia, unspecified (3) Type 2 diabetes mellitus ICD Code: E11.9 - Type 2 diabetes mellitus without complications (4) Weakness ICD Code: R53.1 - Weakness Status: Acute (5) Debility ICD Code: R53.81 - Other malaise (6) UTI (urinary tract infection) ICD Code: N39.0 - Urinary tract infection, site not specified Status: Acute (7) CAD (coronary artery disease) of bypass graft ICD Code: I25.810 - Atherosclerosis of coronary artery bypass graft(s) without angina pectoris (8) CHF (congestive heart failure) ICD Code: I50.9 - Heart failure, unspecified Assessment and Plan 87yo female with past medical history significant for coronary artery disease status post previous CABG in 2009, hypertension, dyslipidemia and diabetes mellitus type 2 who presents to [facility] ED with complaints of progressive weakness 6 days. //Sepsis with leukocytosis with white count 13.2, elevated RR and UTI, failed outpatient treatment -CXR 12/11/17 shows no acute disease, images reviewed by me -UCX positive for E Coli 12/12/17, treated with Macrobid as outpatient and given one-time dose of Rocephin. Repeat UCX pending, follow up on results -IV Rocephin -IVF -continuous cardiac monitoring //Progressive weakness //Urinary retention--UTI -CT head 12/11/17 negative for evidence of acute intracranial process, images reviewed by me -Orthostatic BP measurements -neuro checks -PT eval/tx OT EVAL -continue ed[place]son for now, urinary catheter management- DC [place] -ASA daily -Obtain B12, MMA, Vitamin D and phosphorus levels -fall precautions //Hypoglycemia, suspect contributing to weakness //DM, type 2, insulin dependent -random glucose 58 -Hold home dose of insulin -obtain HgbA1c -accucheks with ISS //CAD with hx of CABG -patient has no cardiac complaints -continuous cardiac monitoring //CHF, not decompensated -Hold Aldactone and furosemide for now -Monitor closely for signs of fluid overload //HTN -controlled off antihypertensive medication -Continue to monitor BP closely and adjust treatment as needed //Dyslipidemia -Resume home dose of simvastatin 40 mg daily DVT prophylaxis -Heparin sq Discharge Planning TOMORROW OR THE NEXT DAY TO SNF WHEN BED AVAILABLE WILL NEED SNF FOR SHORT COURSE David Mancia DO Dec 15, 2017 15:54
[2017-12-15] MEDS ORDERED: HYDROmorphone HCL PF 2 MG/ML VIAL IV PUSH PRN ×2 (16:00)
[2017-12-15] MEDS: cefTRIAXone INJ 1,000 MG in SODIUM CHLORIDE 0.9% INJ 100 ML IV SCH (18:09)
[2017-12-15] MEDS: DOCUSATE SODIUM 50 MG/SENNA 8.6 MG TAB PO SCH (20:55)
[2017-12-15] MEDS: DIAZEPAM 2 MG TAB PO PRN (20:55)
[2017-12-15 22:36] VITALS: BP 140/64; PULSE 86; RESP 18; TEMP 96.7; O2SAT 96
[2017-12-16 00:07] VITALS: BP 124/61; PULSE 95; RESP 18; TEMP 97.1; O2SAT 94
[2017-12-16] MEDS: ACETAMINOPHEN 325 MG TAB PO PRN ×2 (00:11→06:25)
[2017-12-16] MEDS: HEPARIN SODIUM - SQ 10,000 UNITS/ML VIAL SQ SCH (05:30)
[2017-12-16 07:16] LABS: AUTOMATED NEUTROPHIL # 4.9 TH/MM3 (1.8-7.7); BASOPHIL % 0.4 % (0.0-2.0); EOSINOPHIL # 0.2 TH/MM3 (0-0.4); EOSINOPHIL % 2.7 % (0.0-4.0); HEMATOCRIT 33.9 % (35.0-46.0); HEMOGLOBIN 11.7 GM/DL (11.6-15.3); LYMPH % 24.4 % (9.0-44.0); LYMPHOCYTE # 1.8 TH/MM3 (1.0-4.8); MEAN CELL VOLUME 92.7 FL (80.0-100.0); MEAN CORPUSCULAR HEMOGLOBIN 32.1 PG (27.0-34.0); MEAN CORPUSCULAR HGB CONC 34.6 % (32.0-36.0); MEAN PLATELET VOLUME 8.5 FL (7.0-11.0); MONO % 7.6 % (0.0-8.0); MONOCYTE # 0.6 TH/MM3 (0-0.9); NEUT % 64.9 % (16.0-70.0); PLATELET COUNT 276 TH/MM3 (150-450); RED BLOOD COUNT 3.66 MIL/MM3 (4.00-5.30); RED CELL DISTRIBUTION WIDTH 13.8 % (11.6-17.2); WHITE BLOOD COUNT 7.5 TH/MM3 (4.0-11.0)
[2017-12-16 07:35] LABS: ALBUMIN 2.9 GM/DL (3.4-5.0); AST (GOT) 15 U/L (15-37); BICARBONATE 25.3 MEQ/L (21.0-32.0); CALCIUM 9.3 MG/DL (8.5-10.1); CHLORIDE 107 MEQ/L (98-107); CREATININE 0.54 MG/DL (0.50-1.00); GLOMERULAR FILTRATION RATE 107 ML/MIN (>89); GLUCOSE,RANDOM 144 MG/DL (74-106); SODIUM (NA) 140 MEQ/L (136-145)
[2017-12-16 07:43] LABS: ALKALINE PHOSPHATASE 64 U/L (45-117); ALT (GPT) 14 U/L (10-53); BLOOD UREA NITROGEN 9 MG/DL (7-18); PHOSPHORUS 3.4 MG/DL (2.5-4.9); TOTAL BILIRUBIN ADULT 0.3 MG/DL (0.2-1.0); TOTAL PROTEIN 6.9 GM/DL (6.4-8.2)
[2017-12-16 07:53] VITALS: BP 129/54; PULSE 85; RESP 18; TEMP 97.5; O2SAT 95
[2017-12-16] MEDS: INSULIN ASPART SUPPLEMENTAL SCALE SQ SCH (08:00)
[2017-12-16] MEDS: DOCUSATE SODIUM 50 MG/SENNA 8.6 MG TAB PO SCH (08:12)
[2017-12-16] MEDS: PRAVASTATIN SOD 80 MG TAB PO SCH (08:12)
[2017-12-16] MEDS: ASPIRIN EC 81 MG TABEC PO SCH (08:13)
[2017-12-16] MEDS: SODIUM CHLORIDE 0.9% FLUSH 10 ML FLUSH IV FLUSH SCH (08:13)
[2017-12-16] MEDS: SODIUM CHLOR 0.45% 1000 ML INJ 1,000 ML IV SCH (08:14)
[2017-12-16] MEDS ORDERED: NOVOLOGSS SQ (09:51)
[2017-12-16] MEDS ORDERED: CIPR250T52 PO (09:53)
--- NOTE | 2017-12-16 11:05 | HHI.PR ---
Subjective Remarks This is an 87yo female with past medical history significant for coronary artery disease status post previous CABG in 2010, hypertension, dyslipidemia and diabetes mellitus type 2 who presents to [facility] ED with complaints of progressive weakness 6 days. This is the patient's third visit to the ED with the same complaints of weakness this week. She was diagnosed with E. coli urinary tract infection yesterday and was started on antibiotics. Patient denies any complaints of dysuria while at home. She reports progressive generalized weakness worse in the legs. She denies any fever or chills. She denies any vision changes or headache. She does state that she was confused this morning which is new for her. She is also unable to urinate this morning. She denies any associated back pain, saddle paresthesias, bowel or bladder incontinence. She denies any diarrhea or constipation. She denies any nausea, vomiting or abdominal pain. She denies any chest pain or shortness of breath. She does report 11 pound weight loss recently. She reports a recent illness with nasal congestion and cough with greenish sputum production 3 weeks ago but this has since resolved. She endorses tight blood sugar control and states that she tries to keep her blood sugars between 80 and 100. She did not use her insulin this morning. She states this morning she was unable to get out of bed. She does not think that her symptoms are related to urinary tract infection states that she has always had bacteria in her urine. She follows with Dr. Rodriguez who recently took her off of metoprolol due to low blood pressure. 2-18 Patient seen and examined this morning. Temperature 96.7, pulse 94, respiratory rate 18, blood pressure 121/71, pulse ox 98 on room air. She reports that she is feeling a lot better today. Denies feeling feverish. Denies feeling confused. Admits to feeling weak at this time. Informed her that I will have physical therapy see her and she is looking forward to it. She is concerned that the cause of her symptoms was her blood sugars and not her urinary tract infection. At time of admission her blood glucose was 58, she denies ever being that low. 2-19 WILL DC [place] NEEDS SNF PER PT WILL GET OT DW CASE MANAGEMENT AND PATIENT PAIN MEDICATIONS NEEDED AM LABS HOPEFULLY TO SNF IN NEXT 24-48 HOURS = 12/16. Patient says she is doing well. Denies any chest pain or shortness of breath. Denies any nausea or vomiting. Says she is urinating all right. She denies any abdominal pain. She denies constipation, no bowel movement since admission. Patient reports her right knee is with chronic osteoarthritis. Very painful after a period of resting. We discussed exercise techniques. Objective Vital Signs Date Time Temp Pulse Resp B/P (MAP) Pulse Ox O2 Delivery O2 Flow Rate FiO2 12/16/17 07:53 97.5 85 18 129/54 (79) 95 12/16/17 00:07 97.1 95 18 124/61 (82) 94 12/15/17 22:36 96.7 86 18 140/64 (89) 96 12/15/17 12:00 97.6 93 18 120/72 (88) 99 I/O 12/15/17 12/15/17 12/15/17 12/16/17 12/16/17 12/16/17 07:00 15:00 23:00 07:00 15:00 23:00 Intake Total 3558 ml 480 ml Output Total 700 ml 400 ml Balance -700 ml -400 ml 3558 ml 480 ml Intake Oral 480 ml 480 ml IV Total 3078 ml Output Urine Total 700 ml 400 ml # Voids 2 2 # Bowel Movements 0 0 Result Diagram: 12/16/17 0611 12/16/17 0611 Objective Remarks GENERAL: She is lying in bed. Appears comfortable. SKIN: Warm and dry. HEAD: Normocephalic. EYES: No scleral icterus. No injection or drainage. NECK: Supple, trachea midline. No JVD. CARDIOVASCULAR: Regular rate and rhythm without murmurs, gallops, or rubs. RESPIRATORY: Breath sounds equal bilaterally. No accessory muscle use. GASTROINTESTINAL: Abdomen soft, non-tender, nondistended. MUSCULOSKELETAL: No cyanosis, or edema. Right knee, pain with movement. No effusion or erythema. BACK: Nontender without obvious deformity. No CVA tenderness. A/P Assessment and Plan 87yo female with past medical history significant for coronary artery disease status post previous CABG in 2009, hypertension, dyslipidemia and diabetes mellitus type 2 who presents to [facility] ED with complaints of progressive weakness 6 days. //Sepsis with leukocytosis with white count 13.2, elevated RR and UTI, failed outpatient treatment -CXR 12/11/17 shows no acute disease, images reviewed by me -UCX positive for E Coli 12/12/17, treated with Macrobid as outpatient and given one-time dose of Rocephin. Repeat UCX pending, follow up on results -IV Rocephin -IVF -continuous cardiac monitoring = Continue Cipro to complete course of treatment for UTI. //Progressive weakness //Urinary retention--UTI -CT head 12/11/17 negative for evidence of acute intracranial process, images reviewed by me -Orthostatic BP measurements -neuro checks -PT eval/tx OT EVAL -continue edmondson for now, urinary catheter management- DC [place] -ASA daily -Obtain B12, MMA, Vitamin D and phosphorus levels -fall precautions = Continue Cipro to complete course of treatment for UTI. //Hypoglycemia, suspect contributing to weakness //DM, type 2, insulin dependent -random glucose 58 -Hold home dose of insulin -obtain HgbA1c -accucheks with ISS = A1c is 8.0. Very small requirement for insulin here. The SPECT noncompliance at home. We'll continue on sliding scale. //CAD with hx of CABG -patient has no cardiac complaints -continuous cardiac monitoring //CHF, not decompensated -Hold Aldactone and furosemide for now -Monitor closely for signs of fluid overload. Discontinue IV fluids //HTN -controlled off antihypertensive medication -Continue to monitor BP closely and adjust treatment as needed //Dyslipidemia -Resume home dose of simvastatin 40 mg daily //Osteoarthritis right knee. Tramadol as needed. Continue to work with PT appreciate assistance. Suspect this is gelling phenomenon secondary to osteoarthritis. We'll check x-ray of right knee. DVT prophylaxis -Heparin sq Discharge Planning Discharge to SNF. Josh Ochoa MD Dec 16, 2017 11:05
[2017-12-16] MEDS ORDERED: TRAM50 PO (11:12)
--- NOTE | 2017-12-16 11:13 | HHI.DS ---
Discharge Summary Admission Date Dec 13, 2017 at 13:59 Discharge Date: Dec 16, 2017 Admitting Diagnosis UTI weakness (1) HTN (hypertension) ICD Code: I10 - Essential (primary) hypertension (2) Dyslipidemia ICD Code: E78.5 - Hyperlipidemia, unspecified (3) Type 2 diabetes mellitus ICD Code: E11.9 - Type 2 diabetes mellitus without complications (4) Weakness ICD Code: R53.1 - Weakness Status: Acute (5) Debility ICD Code: R53.81 - Other malaise (6) UTI (urinary tract infection) ICD Code: N39.0 - Urinary tract infection, site not specified Status: Acute (7) CAD (coronary artery disease) of bypass graft ICD Code: I25.810 - Atherosclerosis of coronary artery bypass graft(s) without angina pectoris (8) CHF (congestive heart failure) ICD Code: I50.9 - Heart failure, unspecified Procedures No invasive procedures. Brief History - From Admission Written by Delma Vera, acting as scribe for Dr. Ochoa on 12/13/17 at 14: 16. This is an 87yo female with past medical history significant for coronary artery disease status post previous CABG in 2009, hypertension, dyslipidemia and diabetes mellitus type 2 who presents to [facility] ED with complaints of progressive weakness 6 days. This is the patient's third visit to the ED with the same complaints of weakness this week. She was diagnosed with E. coli urinary tract infection yesterday and was started on antibiotics. Patient denies any complaints of dysuria while at home. She reports progressive generalized weakness worse in the legs. She denies any fever or chills. She denies any vision changes or headache. She does state that she was confused this morning which is new for her. She is also unable to urinate this morning. She denies any associated back pain, saddle paresthesias, bowel or bladder incontinence. She denies any diarrhea or constipation. She denies any nausea, vomiting or abdominal pain. She denies any chest pain or shortness of breath. She does report 11 pound weight loss recently. She reports a recent illness with nasal congestion and cough with greenish sputum production 3 weeks ago but this has since resolved. She endorses tight blood sugar control and states that she tries to keep her blood sugars between 80 and 100. She did not use her insulin this morning. She states this morning she was unable to get out of bed. She does not think that her symptoms are related to urinary tract infection states that she has always had bacteria in her urine. She follows with Dr. Rodriguez who recently took her off of metoprolol due to low blood pressure. CBC/BMP: 12/16/17 0611 12/16/17 0611 Significant Findings Laboratory Tests Test 12/13/17 11:40 12/13/17 11:50 12/14/17 07:05 12/15/17 06:12 Urine Leukocyte Esterase TRACE (NEG) Urine Bacteria RARE /hpf (NONE) White Blood Count 13.2 TH/MM3 (4.0-11.0) Neutrophils (%) (Auto) 76.3 % (16.0-70.0) Neutrophils # (Auto) 10.1 TH/MM3 (1.8-7.7) Random Glucose 58 MG/DL (74-106) 112 MG/DL (74-106) 157 MG/DL (74-106) Total Creatine Kinase 265 U/L (26-192) Troponin I LESS THAN 0.02 NG/ML 25-Hydroxy Vitamin D Total 27.8 ng/ML (30-100) Red Blood Count 3.70 MIL/MM3 (4.00-5.30) 3.67 MIL/MM3 (4.00-5.30) Hematocrit 34.6 % (35.0-46.0) 34.0 % (35.0-46.0) Albumin 3.0 GM/DL (3.4-5.0) 3.0 GM/DL (3.4-5.0) Potassium Level 3.3 MEQ/L (3.5-5.1) Hemoglobin A1c 8.0 % (4.3-6.0) Test 12/16/17 06:11 Red Blood Count 3.66 MIL/MM3 (4.00-5.30) Hematocrit 33.9 % (35.0-46.0) Random Glucose 144 MG/DL (74-106) Albumin 2.9 GM/DL (3.4-5.0) Imaging Last Impressions Knee X-Ray 12/16/17 0000 Signed Impressions: Service Date/Time: Saturday, December 16, 2017 11:39 - CONCLUSION: 1. Moderate osteoarthritis of the right knee with joint effusion. No acute findings. Atherosclerotic calcifications noted in the popliteal artery. Luis Osorio MD PE at Discharge GENERAL: AWAKE ALERT ORIENTED X3 SKIN: Warm and dry. HEAD: Atraumatic. Normocephalic. EYES: Pupils equal and round. No scleral icterus. No injection or drainage. EOMI ENT: No nasal bleeding or discharge. Mucous membranes pink and moist. TONGUE MIDLINE NECK: Trachea midline. No JVD. SUPPLE CARDIOVASCULAR: Regular rate and rhythm. S1, S2 NO S3 OR S4 RESPIRATORY: No accessory muscle use. Clear to auscultation. Breath sounds equal bilaterally. GASTROINTESTINAL: Abdomen soft, non-tender, nondistended. Hepatic and splenic margins not palpable. [place] MUSCULOSKELETAL: Extremities without clubbing, cyanosis, or edema. No obvious deformities. NEUROLOGICAL: Awake and alert. No obvious cranial nerve deficits. Motor grossly within normal limits. 4 out of 5 muscle strength in the arms and legs. Normal speech. PSYCHIATRIC: Appropriate mood and affect; insight and judgment normal. Hospital Course Patient's culture from 12/11 returned with pansensitive Escherichia coli. Patient was started on IV antibiotics with improvement in symptoms. Patient was also found to have hypoglycemia with glucose of 58 on admission, suspected to be lower at home. She required very minimal insulin during admission, and so we suspect overtreatment of diabetes recently at home. She'll be continued on insulin sliding scale. A1c8.0. Patient reports pain in right knee, likely secondary to chronic osteoarthritis with gelling phenomenon, worse after long periods of resting. Recommend aggressive physical therapy. Tramadol as needed for pain. Patient did have urinary retention on admission with placement of [place]. [place] was removed. This is likely secondary to narcotics. Commended limiting narcotics. Patient will continue on Cipro by mouth for treatment of UTI. For problem-based summary from most recent progress note, please see below. 87yo female with past medical history significant for coronary artery disease status post previous CABG in 2009, hypertension, dyslipidemia and diabetes mellitus type 2 who presents to [facility] ED with complaints of progressive weakness 6 days. //Sepsis with leukocytosis with white count 13.2, elevated RR and UTI, failed outpatient treatment -CXR 12/11/17 shows no acute disease, images reviewed by me -UCX positive for E Coli 12/12/17, treated with Macrobid as outpatient and given one-time dose of Rocephin. Repeat UCX pending, follow up on results -IV Rocephin -IVF -continuous cardiac monitoring = Continue Cipro to complete course of treatment for UTI. //Progressive weakness //Urinary retention--UTI -CT head 12/11/17 negative for evidence of acute intracranial process, images reviewed by me -Orthostatic BP measurements -neuro checks -PT eval/tx OT EVAL -continue fr[place] for now, urinary catheter management- DC [place] -ASA daily -Obtain B12, MMA, Vitamin D and phosphorus levels -fall precautions = Continue Cipro to complete course of treatment for UTI. //Hypoglycemia, suspect contributing to weakness //DM, type 2, insulin dependent -random glucose 58 -Hold home dose of insulin -obtain HgbA1c -accucheks with ISS = A1c is 8.0. Very small requirement for insulin here. The SPECT noncompliance at home. We'll continue on sliding scale. //CAD with hx of CABG -patient has no cardiac complaints -continuous cardiac monitoring //CHF, not decompensated -Hold Aldactone and furosemide for now -Monitor closely for signs of fluid overload. Discontinue IV fluids //HTN -controlled off antihypertensive medication -Continue to monitor BP closely and adjust treatment as needed //Dyslipidemia -Resume home dose of simvastatin 40 mg daily //Osteoarthritis right knee. Tramadol as needed. Continue to work with PT appreciate assistance. Suspect this is gelling phenomenon secondary to osteoarthritis. We'll check x-ray of right knee. DVT prophylaxis -Heparin sq Discharge Planning TOMORROW OR THE NEXT DAY TO SNF WHEN BED AVAILABLE WILL NEED SNF FOR SHORT COURSE Pt Condition on Discharge: Good Discharge Disposition: Discharge to SNF Discharge Time: > 30 minutes Discharge Instructions DIET: Follow Instructions for: Diabetic Diet Activities you can perform: Regular-No Restrictions New Medications: Ciprofloxacin (Cipro) 250 Mg Tab 250 MG PO BID for Infection for 7 Days, #14 TAB 0 Refills Insulin Aspart Inj (Novolog Inj) 100 Unit/Ml Inj 1 INJECTION SQ ACHS SLIDING SCALE for Blood Sugar Management for 30 Days, INJECTION Tramadol (Ultram) 50 Mg Tab 1-2 TAB PO Q4H PRN for PAIN SCALE 1 TO 10, #20 TAB Continued Medications: Aspirin DR (Aspir-81) 81 Mg Tabdr 1 TAB PO DAILY Diazepam (Valium) 2 Mg Tab 2 MG PO HS, TAB 0 Refills Simvastatin (Zocor) 40 Mg Tab 40 MG PO DAILY for Cholesterol Management, #30 TAB 0 Refills Spironolactone (Spironolactone) 25 Mg Tab 25 MG PO DAILY, #30 TAB 0 Refills Torsemide (Torsemide) 20 Mg Tab 20 MG PO DAILY, #30 TAB 0 Refills Discontinued Medications: Insulin Human NPH Inj (Novolin N Inj) 100 Unit/Ml Inj 45 UNITS SQ AC BREAKFAST Insulin Regular (Human) (Novolin R Relion) 100 Unit/Ml Inj 1 UNITS SQ DIRECTED Nitrofurantoin Monohydrate Macrocrystals (Macrobid) 100 Mg Cap 100 MG PO BID for Infection for 5 Days, #10 CAP 0 Refills Josh Ochoa MD Dec 16, 2017 11:13
[2017-12-16 11:43] VITALS: BP 118/71; PULSE 87; RESP 17; TEMP 97.1; O2SAT 99
[2017-12-16] MEDS ORDERED: LACTULOSE SYRUP 20 GM/30 ML CUP PO ONE (12:00)
[2017-12-16] MEDS ORDERED: MAGNESIUM HYDROXIDE SUSP 30 ML CUP PO ONE (12:00)
--- NOTE | 2017-12-16 12:05 | RADRPT ---
EXAM DATE/TIME: 12/16/2017 11:39 [facility] COMPARISON: No previous studies available for comparison. INDICATIONS : Right knee pain and swelling, no known injury. Pain worse after laying or not moving around for long periods of time. MEDICAL HISTORY : right knee pain, right knee cortisone injections SURGICAL HISTORY : None. ENCOUNTER: [facility] ACUITY: 1 year PAIN SCORE: 7/10 LOCATION: Right knee FINDINGS: There is moderate osteoarthritis of the right knee, especially the medial joint compartment. Moderate knee joint effusion. No acute fracture or subluxation. CONCLUSION: 1. Moderate osteoarthritis of the right knee with joint effusion. No acute findings. Atherosclerotic calcifications noted in the popliteal artery. Luis Osorio MD on December 16, 2017 at 11:59 Board Certified Radiologist. This report was verified electronically.
[2017-12-16 17:03] LABS: HEMOGLOBIN A1C 7.9 % (4.3-6.0)
== END 2017-12-16 12:12 | DRG 872 ==
LOC: NEPD 10:55 → NEDA 13:59 → N06B 15:41
PROVIDERS: ADMIT Internal Medicine; ATTEND Internal Medicine
PROC: 0T9B70Z Drainage of Bladder with Drainage Device, Via Natural or Artificial Opening (ICD-10-PCS; principal; 2017-12-13)
DX: A41.9 Sepsis, unspecified organism (principal); N39.0 Urinary tract infection, site not specified; I25.810 Atherosclerosis of coronary artery bypass graft(s) without angina pectoris; E11.649 Type 2 diabetes mellitus with hypoglycemia without coma; I50.9 Heart failure, unspecified; I11.0 Hypertensive heart disease with heart failure; J44.9 Chronic obstructive pulmonary disease, unspecified; E78.5 Hyperlipidemia, unspecified; I25.10 Atherosclerotic heart disease of native coronary artery without angina pectoris; R53.1 Weakness; H91.90 Unspecified hearing loss, unspecified ear; R05 Cough; B96.20 Unspecified Escherichia coli [E. coli] as the cause of diseases classified elsewhere; M17.11 Unilateral primary osteoarthritis, right knee; Z96.41 Presence of insulin pump (external) (internal); Z85.3 Personal history of malignant neoplasm of breast; Z95.5 Presence of coronary angioplasty implant and graft; Z79.4 Long term (current) use of insulin; Z79.899 Other long term (current) drug therapy; I25.2 Old myocardial infarction; Z92.3 Personal history of irradiation
CPT/HCPCS: 73564; 80053; 81001; 82306; 82550; 82552; 82607; 82948; 83036; 83735; 83921; 84100; 84439; 84443; 84484; 85025; 85027; 87086; 99285; J0696; J1644; J1815

== ENCOUNTER → 2018-03-06 | Outpatient (CLI) | payer MEDICARE, BC ==
[~2018-03-06] MED LIST changes: +CIPR250T52 PO; +DIAZ2 PO; -FURO20TA PO; -INSUINJ3 SQ; -MACR100C2 PO; +NOVOLOGSS SQ; -NOVONP2 SQ; +TORS20TA PO; +TRAM50 PO
[2018-03-06 11:16] LABS: GLUCOSE,FASTING 215 MG/DL (74-99)
[2018-03-06 11:23] LABS: ALKALINE PHOSPHATASE 81 U/L (45-117); ALT (GPT) 14 U/L (10-53); HDL CHOLESTEROL 55.3 MG/DL (40.0-60.0); TOTAL BILIRUBIN ADULT 0.5 MG/DL (0.2-1.0); TOTAL PROTEIN 7.8 GM/DL (6.4-8.2); TRIGLYCERIDES 91 MG/DL (42-150)
[2018-03-06 11:38] LABS: ALBUMIN 3.8 GM/DL (3.4-5.0); AST (GOT) 24 U/L (15-37); BICARBONATE 25.4 MEQ/L (21.0-32.0); BLOOD UREA NITROGEN 17 MG/DL (7-18); CALCIUM 9.5 MG/DL (8.5-10.1); CHLORIDE 99 MEQ/L (98-107); CHOLESTEROL 147 MG/DL (120-200); CHOLESTEROL/ HDL RATIO 2.65 RATIO; CREATININE 0.88 MG/DL (0.50-1.00); GLOMERULAR FILTRATION RATE 61 ML/MIN (>89); LDL CHOLESTEROL 74 MG/DL (0-99); SODIUM (NA) 136 MEQ/L (136-145)
[2018-03-06 16:48] LABS: HEMOGLOBIN A1C 8.6 % (4.3-6.0)
== END ==
LOC: CLAB 10:01
PROVIDERS: ATTEND Family Medicine
DX: E78.2 Mixed hyperlipidemia (principal); E11.9 Type 2 diabetes mellitus without complications
CPT/HCPCS: 36415; 80053; 80061; 83036